=== PATIENT | female | born 1975 ===

== ENCOUNTER 2017-09-12 12:37 | Inpatient (IN) | payer MEDICAID, SELFPAY ==
[2017-09-12] MEDS ORDERED: ISOVUE-370 76%-LOCM 1 ML ONE (12:59)
[2017-09-12 13:10] LABS: O2 Tension (PaO2) 118.7 mmHg (80.0-100.0); pH, Arterial 7.41 (7.35-7.45)
[2017-09-12 13:11] LABS: Analyzer IN Cardio ER; Calcium, Ionized 1.2 mmol/L (1.12-1.30); Carboxyhemoglobin (COHb) 1.7 gm% (0.0-3.0); Hematocrit-ABG 29.3 % (36.0-47.0); Hemoglobin (Hb) 8.8 g/dL (12.0-16.0)
--- NOTE | 2017-09-12 13:28 | RAD ---
CHEST 1 VIEW: HISTORY: Unresponsive. Intubated. FINDINGS: Cardiac silhouette is magnified by projection. Pulmonary vasculature is engorged. Dense airspace op acity is present at the left upper lobe and the right perihilar level. Mediastinum is midline. Subtle gas surrounds the cardiac margin and the descending aorta. Gas density is present within each side of the neck soft tissues. The tip of an endotracheal catheter overlies the thoracic inlet. Nasogastric tube descends to the [facility]. Metallic clips overlie the gallbladder fossa. IMPRESSION: 1. Endotracheal catheter is in good radiographic position. Soft tissue gas of the neck and pneumome diastinum are likely related to [place] trauma. 2. Dense bilateral airspace disease likely related to developing edema. 3. No evidence of pneumothorax. POS: [facility]
[2017-09-12] MEDS ORDERED: Propofol 1,000 MG/100 ML VIAL IV ONE (13:35)
[2017-09-12 13:44] LABS: #Monocytes 1.7 thou/uL (0.11-0.59); #Neutrophils 16.3 thou/uL (1.40-6.50); %Basophils 0.1 % (0.0-1.0); %Eosinophils 0.1 % (0.0-10.0); %Monocytes 8.8 % (0.0-10.0); Hemoglobin 9.7 g/dL (12.0-16.0); Mean Corpuscular HGB CONC 30.2 g/dL (32.0-36.0); Mean Corpuscular Hemoglobin 25.5 pg (27.0-31.0); Mean Corpuscular Volume 84.5 fl (81.0-99.0); Mean Platelet Volume 9.5 fL (7.4-10.4); Platelet Count 199 thou/uL (130-400)
[2017-09-12 13:48] LABS: BHCG - Serum Negative (NEGATIVE); Pregs Control Background? CLEAR/WHITE (CLR/WHITE); Pregs Control Bar Appear? YES (CONTROL BAR)
[2017-09-12 13:51] LABS: INR-International Normal Ratio 1.4; PTT 42.4 SEC (22.9-36.1); Prothrombin Time 17.4 SEC (12.0-14.7)
[2017-09-12] MEDS ORDERED: Midazolam HCl 5 mg/ml Vial ONE (13:53)
[2017-09-12 13:57] LABS: ALT (SGPT) 17 U/L (8-55); AST (SGOT) 26 U/L (5-34); Albumin 3.2 g/dL (3.5-5.0); Alkaline Phosphatase 210 U/L (40-150); Anion Gap 19 mmol/L (10-20); BUN (Urea Nitrogen) 23 mg/dL (7.0-18.7); Bilirubin, Total 0.5 mg/dL (0.2-1.2); CK (CPK) 269 U/L (29-168); Calc. Creatinine Clearance 0 mL/min (70-130); Calcium 9.2 mg/dL (7.8-10.44); Carbon Dioxide 21 mmol/L (22-29); Chloride 107 mmol/L (98-107); Estimated GFR-MDRD 62; Globulin 4.3 g/dL (2.4-3.5); Glucose 124 mg/dL (70-105); Lipase 4 U/L (8-78); Magnesium 2.1 mg/dL (1.6-2.6); Potassium 3.3 mmol/L (3.5-5.1); Protein, Total 7.5 g/dL (6.0-8.3); Sodium 144 mmol/L (136-145)
[2017-09-12 14:00] LABS: CKMB 5.9 ng/mL (0-6.6)
[2017-09-12 14:02] LABS: Troponin I 0.421 ng/mL (< 0.028)
[2017-09-12] MEDS ORDERED: Pantoprazole 40 MG VIAL ONE (14:02)
[2017-09-12] MEDS ORDERED: Fentanyl CADD 250 ML ONE (14:11)
[2017-09-12 14:14] LABS: D-Dimer Test Greater than 20.00 *mcg/mL (0.27-0.43)
[2017-09-12 14:15] LABS: Thyroid Stimulating Hormone 0.6406 uIU/mL (0.35-4.94)
[2017-09-12 14:16] LABS: Bilirubin Negative (Negative); Blood, Urine Large (Negative); Clarity CLOUDY (Clear); Glucose, Urine (Dipstick) Negative (Negative); Leukocyte Negative (Negative); Nitrite Negative (Negative); Protein, Urine (Dipstick) 300 mg/dL (Neg-Trace); Specific Gravity, Urine 1.033 (1.002-1.036)
[2017-09-12 14:19] LABS: RBC/HPF 0-3 HPF (0-3)
[2017-09-12 14:20] LABS: Pathc Cast-AUWi Flag 3.89 (0-2.49)
[2017-09-12] MEDS ORDERED: Sodium Chloride For Inhalation 0.9% 3 ML NEB ONE (14:22)
[2017-09-12 14:28] LABS: Amphetamine Detected (NotDetected); Barbiturates Screen Not Detected (NotDetected); Benzodiazepine Screen Detected (NotDetected); Cocaine Metabolite Screen Not Detected (NotDetected); Medtox Control Line Valid? VALID (VALID); Medtox Reader # READER 1; Methadone Not Detected (NotDetected); Methamphetamine Detected (NotDetected); Opiate Screen Not Detected (NotDetected); Oxycodone Screen Not Detected (NotDetected); Phencyclidine (PCP) Not Detected (NotDetected); THC/Cannabinoid Screen Not Detected (NotDetected); Tricyclic Screen Not Detected (NotDetected)
[2017-09-12 14:29] LABS: Bacteria/HPF 2+ HPF (None Seen)
[2017-09-12 14:30] LABS: Hyaline Casts/LPF 0-3 HYALINE CAST LPF (0-3 Hyaline); Manual Microscopic Reviewed? No Path Casts Seen; Other Casts/LPF 0-3 FINELY GRAN LPF (0-3 Hyaline); Renal Epithelial None Seen HPF (0-3); Transitional Epithelial NONE SEEN HPF (0-3)
--- NOTE | 2017-09-12 15:17 | CT ---
CT HEAD NONCONTRAST: HISTORY: Syncope. FINDINGS: There is low density throughout the left cerebral hemisphere with effacement of the sulci and loss of rodriguez-white differentiation. Hyperdensity is associated with branches of the left middle cerebral ar yamila and in the arteries at the expected location of the anterior cerebral arteries. Less severe effacement of the right cerebral sulci and cerebellum is apparent. Minimal rightward fransisca ft of the septum pellucidum is present. There is effacement of the left lateral ventricle. Soft tissue gas seen on chest CT extends into the neck and posterior pharyngeal soft tissues. There is fluid and mucosal thickening within the maxillary sinuses and ethmoid air cells. IMPRESSION: Severe acute cytotoxic edema associated with the left cerebral hemisphere, likely related to recent s evere vascular insult. No hemorrhage is evident. Hyperdensity associated with the left middle cereb ral and anterior cerebral arteries likely reflux complete clot. Findings were called to Dr. Garcias in the emergency department at 1454 hours. CODE CR POS: [facility]
--- NOTE | 2017-09-12 15:18 | CT ---
CT CERVICAL SPINE NONCONTRAST: History Fall. Neck injury. FINDINGS: Disk space narrowing is most pronounced at the C5-6 and C6-7 levels. There is osteophytosis througho ut the vertebral bodies and facets. No acute fracture or dislocation. Cervicothoracic junction is i ntact. Endotracheal catheter and nasogastric tube are partially visualized. Extensive subcutaneous gas and mediastinal gas are again demonstrated. IMPRESSION: No acute osseous abnormalities of the cervical spine are demonstrated. POS: [facility]
--- NOTE | 2017-09-12 15:23 | CT ---
CT ARTERIOGRAM CHEST WITH IV CONTRAST AND 3D MIP IMAGING: HISTORY: Syncope. Chest pain. FINDINGS: There is good contrast opacification of the pulmonary arteries and thoracic aorta with normal branchi ng of the great vessels. Dense airspace disease is present within each lobe, most severe at the post erior segment left upper lobe. A small amount of gas is present throughout the mediastinum, extendin g from the retrocrural area of the upper abdomen into the neck. The endotracheal catheter and nasoga stric tube are in good CT position. IMPRESSION: 1. No CT evidence of pulmonary embolus. 2. Pneumomediastinum. Dense bilateral patchy airspace disease. POS: [facility]
--- NOTE | 2017-09-12 15:25 | CT ---
CT ABDOMEN AND PELVIS WITH IV CONTRAST: HISTORY: Fall. Abdomen injury. FINDINGS: Airspace disease at the lung bases is again demonstrated s described on recent CT chest. Gallbladder is surgically absent. Nasogastric tube decompresses the stomach. The liver, spleen, kidneys, adren al glands, and pancreas have a normal CT appearance. No free fluid is apparent. Urinary bladder is decompressed by a Boothe catheter. Lack of oral contrast limits evaluation of the bowel. No evidence of obstruction. IMPRESSION: No acute abnormalities of the abdomen are demonstrated. POS: [facility]
[2017-09-12] MEDS ORDERED: hydrALAZINE 20 MG/ML VIAL SLOW IVP PRN (17:21)
[2017-09-12] MEDS ORDERED: Octreotide Acetate 1,250 MCG in Sodium Chloride 0.9% 250 ML 250 ML IVPB SCH (17:21)
[2017-09-12] MEDS ORDERED: Ondansetron PF 4 MG/2 ML Vial IVP PRN (17:21)
--- NOTE | 2017-09-12 18:45 | CON ---
DATE OF CONSULTATION: 09/12/2017 Ms. العراقي is a 41-year-old female found down at home, I am told she was under her bed. She was found by her family. She apparently had feces on her face. She was intubated in transfer. She is currently unresponsive. CT shows a large hemispheric thrombotic cerebrovascular accident. Given that this is already radiogr aphically visible, there is probably been some time period between the event and now. PAST MEDICAL HISTORY: Otherwise unknown. SOCIAL HISTORY: She is reportedly a smoker. She has a history of street drug use. ALLERGIES: She has no reported drug allergies. MEDICATIONS: She is on no prescription drugs reportedly. PHYSICAL EXAMINATION: VITAL SIGNS: She was hypertensive in the ER with a blood pressure 180/120. Blood pressure is 95/56, heart rate 95 in triage. HEENT: Sclerae is anicteric. She is orally intubated. NECK: Without lymphadenopathy. LUNGS: Remarkable for equal breath sounds. HEART: Regular rhythm. ABDOMEN: Soft. EXTREMITIES: Without asymmetry. Chest radiograph suggestive of bilateral infiltrates. CT pulmonary angiogram was done which shows a pneumomediastinum. Abdomen and pelvis CT was done showing no abnormalities. Cervical spine CT shows no fracture. IMPRESSION: Thrombotic cerebrovascular respiratory failure with respiratory failure. Neurology has been consulted. There is a midline shift but small apparently according to the radiologist's interpretation of her CT of her head. Neurology or Neurosurgery should be consulted given her young age. Her prognosis for recovery is dismal. I reviewed her lab work. Drug screen was positive for benzodiazepines, methamphetamines and amphetamines, but I suppose this c ould be a thrombotic cerebrovascular accident associated with her drug use. Renal function is normal . Potassium is 3.3 and pH 7.41, CO2 of 44, pO2 of 118. She is mildly auto-anticoagulated. White count is 19, hemoglobin 9.7, platelets 199. The cause of her anemia is unclear. MCV is 84. I will be happy to follow with the other physicians caring for her. CRITICAL CARE TIME: 30 minutes.
[2017-09-12] MEDS ORDERED: Lorazepam 2 MG/ML VIAL SLOW IVP PRN (19:01)
[2017-09-12] MEDS ORDERED: Fentanyl BOLUS 250 ML IVPB PRN (19:01)
[2017-09-12] MEDS ORDERED: Morphine 2 MG/ML SYRINGE SLOW IVP PRN (19:01)
[2017-09-12] MEDS ORDERED: DISCONTINUE PREVIOUS NARCOTIC PAIN MEDICATIONS AND BENZODIAZEPINES FS SCH (19:01)
[2017-09-12] MEDS ORDERED: fentaNYL Citrate/PF 2,000 MCG in Sodium Chloride 0.9% 60 ML IV SCH (19:01)
[2017-09-12] MEDS: Piperacillin/Tazobactam 3.375 GM in Sodium Chloride 0.9% 100 ML IVPB SCH (19:26)
[2017-09-12] MEDS: Pantoprazole 80 MG in Sodium Chloride 0.9% 100 ML IVP SCH (19:27)
[2017-09-12] MEDS: Sodium Chloride 0.9% 1,000 ML IV SCH (19:27)
[2017-09-12] MEDS: Propofol 1,000 MG/100 ML VIAL IV PRN (19:47)
[2017-09-12] MEDS: Vancomycin HCl 1 GM in Premix Bag 1 BAG IVPB SCH (19:47)
[2017-09-12] MEDS: IN MANNITOL IV SCH (20:14)
[2017-09-12] MEDS: ADMIXTURE FEE IV SCH (20:14)
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
[2017-09-12] MEDS ORDERED: ADMIXTURE FEE IV SCH (21:00)
[2017-09-12] MEDS ORDERED: IN MANNITOL IV SCH (21:00)
[2017-09-12 21:21] LABS: Hemoglobin 7.5 g/dL (12.0-16.0); Platelet Count 134 thou/uL (130-400)
--- NOTE | 2017-09-12 23:58 | HP ---
PRIMARY CARE PHYSICIAN: At the [facility]. CHIEF COMPLAINT: Found down. HISTORY OF PRESENT ILLNESS: The history of present illness is taken from discussion with the ER phys marshallan as well as the patient's mother who has arrived at the ICU. The patient is currently intubated and unable to give any history. Ms. Michel has no known past medical history except for depression . Her mother says that about 2 weeks ago, she had some flu-like symptoms and apparently was diagnose d with the flu, but they were not able to get Tamiflu and tried taking some medications over the coun ter. She seemed to get somewhat better and was able to return back to work, but then a couple of day s ago, she started getting sick again. The patient's son had told the patient's mother that she seem ed a hoarse on yesterday and could not talk very well, then they went to check on her today, she woul d not answer the door, so they had somebody opened the door and they found her under the bed. She polk d blood coming out of her mouth and nose, and she was holding her left hand up very rigid. Her eyes were rolled back in her head. EMS was called and she was brought to the emergency room for evaluatio n. In the ER, a CT scan of the chest was negative for pulmonary embolism; however, it did show some dense pulmonary infiltrates and some pneumomediastinum. She also had a CT scan of the brain which sh owed a severe cytotoxic edema of the almost the entire left cerebral hemisphere and it what appears t o be a complete occlusion of the left middle cerebral and anterior cerebral artery. She was intubate d in the field for protection of her airway. Other than that, her mother says that she recently had broken up with her boyfriend other than that she says she takes a lot of pzrn-gwd-slzcxrk medications for headache. She is not really sure what they are and she also takes a lot of "sleeping pills" to help her sleep and these are also over the counter medications. REVIEW OF SYSTEMS: Unobtainable. PAST MEDICAL HISTORY: Significant for depression. PAST SURGICAL HISTORY: She has had bowel surgery for what sounds like some type of bowel obstruction . ALLERGIES: No known drug allergies. SOCIAL HISTORY: She smokes about a pack a day for 20 years. No known history of any alcohol use; ho wever, she has used drugs in the past, but was currently not known to be taking any drugs. MEDICATIONS: She says she takes some type of antidepressant. PHYSICAL EXAMINATION: GENERAL: The patient is intubated. She is sedated. VITAL SIGNS: Her blood pressure in the ER initially was 185/128, heart rate was 112, respiratory rat e of 16, and she is afebrile. HEENT: Her pupils are reactive and equal. Throat is unable to assess. The ET tube is in place and she has got bloody discharge around the ET tube. LUNGS: Significant for expiratory wheezing as well as rales. Decreased breath sounds on the left. CARDIOVASCULAR: She has normal heart tones. She does have a grade 2/6 systolic murmur. ABDOMEN: More or less quiet with very faint bowel sounds. Abdomen is soft. EXTREMITIES: There is no edema. She does have some scattered bruising on the forehead on her right shoulder and right hip. NEUROLOGIC: She is spontaneously moving her left side. She is grimacing her face; however, her righ t side seems to not be moving. LABORATORY DATA: Her white blood cell count 19, hemoglobin 9.7, hematocrit 32.1, platelet count of 1 99. Her sodium is 144, potassium 3.3, chloride is 107, CO2 is 21, BUN of 23, creatinine 0.98, glucos e is 124. Her alkaline phosphatase is 210. Lactic acid was 2.9. Urine test was negative. INR was slightly elevated at 1.4. ASSESSMENT AND PLAN: This is a 41-year-old female that was found down at home, intubated in the [facility]. It appears that as if she has experienced or suffered a massive stroke in the left MCA and left A CA distribution. Her urine drug screen was positive for amphetamine and methamphetamine, and she was hypertensive on arrival. It is possible that she could have suffered a stroke as a result of possib le substance abuse. She also appears to have significant infiltrates in the left lung and pneumomedi astinum and possible she may have aspirated. It is unclear when in fact this cerebral event occurred . The patient also is demonstrating either hematemesis or possibly hemoptysis. At this time, it is difficult to determine. She is being admitted to the ICU. 1. With regard to the acute stroke, Neurosurgery had been contacted from the emergency room to see i f decompressive surgery would be indicated, and at this time, it is not. She is to be treated conser vatively. Unfortunately with a bleeding, we will wait giving her any aspirin, unless cleared by Neur ology. Neurology will be consulted. 2. Pulmonary infiltrates. It is unclear whether or not this is an infectious process. We will assu me this is possibly an aspiration pneumonia and treat her with Zosyn. We will possibly add vancomyci n as well and consult Pulmonary and cardiovascular disease specialist. 3. Hemoptysis versus possible GI bleed. Once this is sorted out, the appropriate consultants will b e contacted. In the meantime, she will be placed on octreotide and Protonix drip. Once again, DVT p rophylaxis will be withheld given the evidence of active bleeding. Her H&H will be monitored and tra nsfused as needed.
[2017-09-13] MEDS: Piperacillin/Tazobactam 3.375 GM in Sodium Chloride 0.9% 100 ML IVPB SCH ×4 (00:09→17:22)
[2017-09-13] MEDS: Sodium Chloride 0.9% 1,000 ML IV SCH ×2 (00:41→09:12)
[2017-09-13 01:42] LABS: Hemoglobin 7.3 g/dL (12.0-16.0); Platelet Count 122 thou/uL (130-400)
[2017-09-13] MEDS: Pantoprazole 80 MG in Sodium Chloride 0.9% 100 ML IVP SCH (05:22)
[2017-09-13] MEDS: Propofol 1,000 MG/100 ML VIAL IV PRN ×3 (05:23→19:28)
[2017-09-13 05:36] LABS: #Eosinphils 0.1 thou/uL (0.0-0.7); #Lymphocytes 1.5 thou/uL (1.20-3.40); #Monocytes 1.3 thou/uL (0.11-0.59); #Neutrophils 13.2 thou/uL (1.40-6.50); %Eosinophils 0.4 % (0.0-10.0); %Lymphocytes 9.4 % (21.0-51.0); %Neutrophils 82.3 % (42.0-75.0); Hemoglobin 7.2 g/dL (12.0-16.0); Mean Corpuscular HGB CONC 31.3 g/dL (32.0-36.0); Mean Platelet Volume 10.8 fL (7.4-10.4); Platelet Count 110 thou/uL (130-400); RBC Distribution Width 16.5 % (11.5-14.5); Red Blood Cell (RBC) Count 2.75 mill/uL (4.20-5.40)
[2017-09-13 06:04] LABS: Anion Gap 12 mmol/L (10-20); BUN (Urea Nitrogen) 21 mg/dL (7.0-18.7); Calc. Creatinine Clearance 48 mL/min (70-130); Calcium 8.5 mg/dL (7.8-10.44); Carbon Dioxide 23 mmol/L (22-29); Cardiac Risk 6.6 (Less than 4.5); Chloride 116 mmol/L (98-107); Cholesterol 99 mg/dl (< 200 Desired); Estimated GFR-MDRD 43; Glucose 171 mg/dL (70-105); HDL Cholesterol 15 mg/dL (>60 Neg Risk); LDL Cholesterol, Calculated 41 mg/dL; Potassium 3.4 mmol/L (3.5-5.1); Sodium 148 mmol/L (136-145); Triglycerides 213 mg/dL (Less than 150)
[2017-09-13 07:06] LABS: Actual Bicarbonate (HCO3a) 22.7 mEq/L (22-26); Analyzer IN Cardio OR; Base Excess (BEa) -2.2 mEq/L (0 (+/-) 2.5); Carboxyhemoglobin (COHb) 1.8 gm% (0.0-3.0); Hematocrit-ABG 20.6 % (36.0-47.0); Hemoglobin (Hb) 7.4 g/dL (12.0-16.0); O2 Tension (PaO2) 90.5 mmHg (80.0-100.0); Puncture Site LRA; pH, Arterial 7.38 (7.35-7.45)
[2017-09-13] MEDS: IN MANNITOL IV SCH ×3 (09:12→21:14)
[2017-09-13] MEDS: Vancomycin HCl 1 GM in Premix Bag 1 BAG IVPB SCH (09:12)
[2017-09-13] MEDS: ADMIXTURE FEE IV SCH ×3 (09:12→21:14)
--- NOTE | 2017-09-13 09:14 | PDOC.PN ---
- Subjective Encounter Start Date: 09/13/17 Encounter Start Time: 09:12 Ms. Michel was seen in follow-up of massive CVA. Patient is intubated and sedated. She has not had significant change overnight. - Objective Resuscitation Status: Resuscitation Status FULL:Full Resuscitation MAR Reviewed: Yes Vital Signs & Weight: Vital Signs (12 hours) Temp Pulse Resp BP Pulse Ox 09/13/17 08:00 16 09/13/17 07:43 99.1 F 63 16 98 09/13/17 07:00 99.1 F 09/13/17 06:15 76 161/72 H 09/13/17 06:00 24 H 09/13/17 04:00 16 09/13/17 03:00 98.3 F 09/13/17 02:40 69 09/13/17 02:00 22 H 09/13/17 00:00 98.5 F 18 09/12/17 22:13 89 09/12/17 22:00 16 Weight Weight 119 lb 7.849 oz Most Recent Monitor Data Heart Rate from ECG 64 NIBP 135/78 NIBP BP-Mean 94 Respiration from ECG 16 SpO2 99 I&O: 09/12/17 09/13/17 09/14/17 06:59 06:59 06:59 Intake Total 2176 Output Total 1910 75 Balance 266 -75 Result Diagrams: 09/13/17 05:00 09/13/17 04:59 Phys Exam - Physical Examination HEENT: PERRLA Respiratory: no wheezing + rhonchi bilaterally Cardiovascular: RRR, no significant murmur, no rub Gastrointestinal: soft, non-tender, positive bowel sounds Musculoskeletal: edema present + upper extremity edema, in her hands + right sided paresis Dx/Plan (1) Acute ischemic left MCA stroke Code(s): I63.512 - CEREB INFRC D/T UNSP OCCLS OR STENOS OF LEFT MID CEREB ART Status: Acute (2) Acute left MIRTA ischemic stroke Code(s): I63.522 - CEREB INFRC D/T UNSP OCCLS OR STENOS OF LEFT ANT CEREB ART Status: Acute (3) Aspiration pneumonia Code(s): J69.0 - PNEUMONITIS DUE TO INHALATION OF FOOD AND VOMIT Status: Acute (4) Acute blood loss anemia Code(s): D62 - ACUTE POSTHEMORRHAGIC ANEMIA Status: Acute (5) Methamphetamine abuse Code(s): F15.10 - OTHER STIMULANT ABUSE, UNCOMPLICATED Status: Acute - Plan * She remains intubated and sedated * Acute Left MCA, and MIRTA CVA- she has been evaluated by Neurology, and placed on Mannitol yesterday. * A repeat CT scan is ordered for today * Echo is pending * Aspiration Pneumonia- continue Zosyn and Vancomycin- can likely discontinue Vancomycin in a day or so * Acute blood loss anemia- ? epistaxis from the trauma of an assumed fall. There was no blood in the stomach with NG tube suction. Will discontinue Octreotide drip, and Change Protonix to BID dosing * Further recommendations per Neurology, and Critical Care. * Prognosis is guarded
--- NOTE | 2017-09-13 11:26 | PRG ---
DATE OF SERVICE: 09/13/2017 SUBJECTIVE: Ms. العراقي remains hemiplegic. OBJECTIVE: VITAL SIGNS: Heart rate is 100, blood pressure 141/47, respiratory rate is 16 and temperature is 100 .2. LUNGS: Remarkable for coarse equal breath sounds. HEART: Regular rhythm. ABDOMEN: Soft. EXTREMITIES: Without asymmetry. LABORATORY DATA: PH 7.38, CO2 of 39 and pO2 of 90. Sodium 148, potassium 3.4, chloride 116, bicarb 23, BUN 21 and creatinine 1.34. White count 16, hemoglobin 7.2 and platelets 110,000. IMPRESSION AND PLAN: 1. Respiratory failure after a thrombotic cerebrovascular accident with hemiplegia of her dominant s michael and aphasia. 2. Street drug use with history of methamphetamine use. 3. Anemia with decreased mean corpuscular volume. She probably would benefit from a transfusion tod ay of just 1 unit of packed cells. 4. Mild hyperchloremia. We will switch her to half normal saline. I met with family and answered all their questions. She is not weanable at this point in time. Another CT is planned for today. CRITICAL CARE TIME: 30 minutes.
[2017-09-13] MEDS: Sodium Chloride 0.45% 1,000 ML IV SCH (12:21)
--- NOTE | 2017-09-13 13:11 | PRG ---
DATE OF SERVICE: 09/13/2017 CHIEF COMPLAINT: CVA. INTERVAL HISTORY: The patient has been in the CCU since yesterday and she is still currently intubat ed and since her admission, she has been moving her left side according to her family as well as nurs ing staff when off sedation. She has pending CT angiogram of the head and neck at this time. LABORATORY RESULTS: White count 16, hemoglobin 7.2, hematocrit 22.9, platelets 110. Chemistry: Sod ium 148, potassium 3.4, chloride 116, bicarbonate 23, BUN 21, creatinine 1.34, glucose 171. Serum os molality 314, triglycerides 213, cholesterol 99, LDL 41, HDL 15 and lipase 4. MR and CT angio is pen ding. PHYSICAL EXAMINATION: VITAL SIGNS: Blood pressure 141/47, pulse 100, and temperature 100.2. GENERAL APPEARANCE: She is on ventilator and she is resting, been on propofol and off propofol. She is moving her left upper extremity. Cranial nerves: Pupils are sluggishly reactive to light and mo tor examination: Tone is normal, bulk is normal and no response to any stimulus on the right side. On the left side, she spontaneously moves her left upper and lower extremity and then the left upper extremities held up, she tends to fold it up when asked to do so and she does move her toes to comman d. Deep tendon reflexes absent. IMPRESSION: Patient is a 41-year-old lady who is critically ill and she has had a left middle cerebr al artery, anterior cerebral artery cerebrovascular accident and this is most likely in multiple vasc ular distribution, likely of left internal carotid artery occlusion. At this time, we are waiting on her CT angio, which is going to be completed today. There is some interval responsiveness; however, prognosis is still guarded at this time. RECOMMENDATIONS: 1. The patient's family was at the bedside. I have informed them that the prognosis is somewhat gua rded at this time and we will wait for CT angio findings. 2. Continue supportive care and mannitol for now. 3. I will request one of my Neurology colleagues to follow with the patient.
--- NOTE | 2017-09-13 17:40 | CT ---
CT ARTERIOGRAM NECK WITH IV CONTRAST AND 3D MIP IMAGING CT HEAD NONCONTRAST CT ARTERIOGRAM HEAD WITH IV CONTRAST AND 3D MIP IMAGING: History: CVA. Comparison: Noncontrast CT head from 09-12-17. FINDINGS: Continued expansion of the left cerebral hemisphere with loss of rodriguez-white differentiation and compl ete effacement of the sulci has progressed since the prior study, now with developing liquefaction of the left cerebral hemisphere. There is 1.0 cm rightward shift of the septum pellucidum due to the la rge cytotoxic edema associated with the left cerebral hemisphere. No hemorrhage is evident. Cerebella r tonsils now extend into the foramen magnum. Endotracheal and nasogastric tube are partially visualized. Dense parenchymal opacity at each lung ap ex likely reflects pulmonary edema. Gas within the subcutaneous tissues of the neck has decreased sin ce the previous exam. There is normal branching of the great vessel from the aortic arch. Good contrast flow is demonstrate d into and throughout the vertebral system and into each carotid system. The right internal carotid a rtery is patent. Flow is demonstrated into the right anterior, middle, and posterior cerebral arterie s. Contrast flow to the left carotid bifurcation is patent. Smoothly marginated defect along the lateral wall of the proximal internal carotid artery result in near complete occlusion. Flow is demonstrated into the more distal internal carotid artery, although it is decreased at the distal cervical ICA an d into the intracranial ICA. No significant contrast is apparent at the level of the carotid siphon. IMPRESSION: 1. Further progression of the large left cerebral infarct with developing liquefaction and diffuse ce rebral edema. 2. 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 3. Neurogenic pulmonary edema. POS: [facility]
[2017-09-13 19:47] LABS: Vancomycin, Trough 23.4 ug/mL
[2017-09-13] MEDS: Pantoprazole 40 MG VIAL IVP SCH (21:14)
[2017-09-14] MEDS: Piperacillin/Tazobactam 3.375 GM in Sodium Chloride 0.9% 100 ML IVPB SCH ×4 (00:19→17:49)
[2017-09-14] MEDS: Sodium Chloride 0.45% 1,000 ML IV SCH (00:20)
[2017-09-14] MEDS: Propofol 1,000 MG/100 ML VIAL IV PRN ×3 (04:06→18:34)
[2017-09-14 06:42] LABS: Anion Gap 13 mmol/L (10-20); BUN (Urea Nitrogen) 13 mg/dL (7.0-18.7); Calc. Creatinine Clearance 44 mL/min (70-130); Calcium 8.6 mg/dL (7.8-10.44); Carbon Dioxide 24 mmol/L (22-29); Chloride 125 mmol/L (98-107); Estimated GFR-MDRD 41; Glucose 110 mg/dL (70-105); Potassium 3.1 mmol/L (3.5-5.1); Sodium 159 mmol/L (136-145)
[2017-09-14 06:59] LABS: pH, Arterial 7.57 (7.35-7.45)
[2017-09-14 07:00] LABS: Actual Bicarbonate (HCO3a) 21.8 mEq/L (22-26); Base Excess (BEa) 0.2 mEq/L (0 (+/-) 2.5); CO2 Tension 24.3 mmHg (35.0-45.0); Carboxyhemoglobin (COHb) 1.5 gm% (0.0-3.0); Hematocrit-ABG 19.8 % (36.0-47.0); Hemoglobin (Hb) 8.1 g/dL (12.0-16.0)
[2017-09-14 07:00] LABS: #Eosinphils 0.3 thou/uL (0.0-0.7); #Lymphocytes 2.3 thou/uL (1.20-3.40); #Monocytes 1.3 thou/uL (0.11-0.59); #Neutrophils 15.3 thou/uL (1.40-6.50); %Eosinophils 1.5 % (0.0-10.0); %Monocytes 6.8 % (0.0-10.0); %Neutrophils 79.7 % (42.0-75.0); Anisocytosis SLIGHT = 6-15 cells (100X) (0-5/hpf); Hemoglobin 8.4 g/dL (12.0-16.0); MDiff Complete? YES; Mean Corpuscular HGB CONC 31.4 g/dL (32.0-36.0); Mean Corpuscular Volume 82.7 fl (81.0-99.0); Mean Platelet Volume 8.5 fL (7.4-10.4); PLT Morphology Comment Appears Decreased; Platelet Count 114 thou/uL (130-400); RBC Distribution Width 16.3 % (11.5-14.5); Red Blood Cell (RBC) Count 3.24 mill/uL (4.20-5.40); Schistocytes SLIGHT = 2-5 cells (100X) (0-1/hpf); White Blood Cell (WBC) Count 19.2 thou/uL (4.8-10.8)
[2017-09-14 07:01] LABS: ALV-art Gradient 106.825 (0-20); Calcium, Ionized 1.3 mmol/L (1.12-1.30); Potassium - ABG Lab 3.1 mmol/L (3.70-5.30); Puncture Site LRA
--- NOTE | 2017-09-14 07:30 | PDOC.PN ---
- Subjective Encounter Start Date: 09/14/17 Encounter Start Time: 07:28 Ms. Michel was seen today in follow-up. She is intubated and sedated. No significant change overnight. - Objective Resuscitation Status: Resuscitation Status FULL:Full Resuscitation MAR Reviewed: Yes Vital Signs & Weight: Vital Signs (12 hours) Temp Pulse Resp BP Pulse Ox 09/14/17 07:00 100.3 F H 09/14/17 06:05 67 146/75 H 09/14/17 06:00 16 09/14/17 04:00 16 09/14/17 02:43 59 L 09/14/17 02:00 16 09/14/17 00:38 67 09/14/17 00:00 16 09/13/17 22:00 16 09/13/17 20:45 65 09/13/17 20:00 100.7 F H 68 16 99 Weight Weight 119 lb 7.849 oz Most Recent Monitor Data Heart Rate from ECG 59 NIBP 145/72 NIBP BP-Mean 97 Respiration from ECG 16 SpO2 97 I&O: 09/13/17 09/14/17 09/15/17 06:59 06:59 06:59 Intake Total 2176 3361 Output Total 1910 4105 55 Balance 266 -744 -55 Result Diagrams: 09/14/17 04:14 09/14/17 04:14 Phys Exam - Physical Examination HEENT: PERRLA Respiratory: no wheezing, no rales, no rhonchi, clear to auscultation bilateral Cardiovascular: RRR, no significant murmur Gastrointestinal: soft, positive bowel sounds Musculoskeletal: no edema Dx/Plan (1) Acute ischemic left MCA stroke Code(s): I63.512 - CEREB INFRC D/T UNSP OCCLS OR STENOS OF LEFT MID CEREB ART Status: Acute (2) Acute left MIRTA ischemic stroke Code(s): I63.522 - CEREB INFRC D/T UNSP OCCLS OR STENOS OF LEFT ANT CEREB ART Status: Acute (3) Aspiration pneumonia Code(s): J69.0 - PNEUMONITIS DUE TO INHALATION OF FOOD AND VOMIT Status: Acute (4) Acute blood loss anemia Code(s): D62 - ACUTE POSTHEMORRHAGIC ANEMIA Status: Acute (5) Methamphetamine abuse Code(s): F15.10 - OTHER STIMULANT ABUSE, UNCOMPLICATED Status: Acute - Plan * Acute Left MIRTA and MCA CVA- with right sided weakness- continue Vent support * HTN- blood pressure is stable * Echo results noted- normal EF, and no thrombus * CTA of the neck noted, with a focal dissection of the Left Carotid, . * Hypernatremia- consider adding a hypotonic IV solution if OK with Neurology * ? Nutritional support- ? PEG tube * HTN- blood pressure is stable
[2017-09-14 08:23] LABS: Osmolality, Serum 336 mOsm/kg (280-295)
[2017-09-14] MEDS: ADMIXTURE FEE IV SCH ×3 (08:25→20:27)
[2017-09-14] MEDS: IN MANNITOL IV SCH ×3 (08:25→20:27)
[2017-09-14] MEDS: Pantoprazole 40 MG VIAL IVP SCH ×2 (08:41→20:26)
--- NOTE | 2017-09-14 09:49 | RAD ---
CHEST 1 VIEW: HISTORY: A 41-year-old female with a history of respiratory insufficiency. COMPARISON: 09/12/17. FINDINGS: NG tube and endotracheal tubes are in place. There are patchy bilateral interstitial and alveolar op acity changes showing some worsening in the right lower lung zone but improvement in the left upper l obe. No evidence for pneumothorax. IMPRESSION: Persistent somewhat changing bilateral interstitial and alveolar opacities somewhat more marked in th e right base but showing improvement in the left upper lobe region. Continue short-term followup. POS: OFF
--- NOTE | 2017-09-14 11:57 | PRG ---
DATE OF SERVICE: 09/14/2018 Ms. Michel remains mechanically ventilated. PHYSICAL EXAMINATION: VITAL SIGNS: Heart rate 66. Blood pressure 118/63, respiratory rate 28. LUNGS: Lungs are clear. HEART: Regular rhythm. ABDOMEN: Soft. Chest radiograph shows patchy bilateral infiltrates, but there is slight improvement. I reviewed this film. LABORATORY: White count 19.2, hemoglobin 8.4, platelets 114,000. Sodium 159, potassium 3.1, chloride 125, bicarbonate 24, BUN 13, creatinine 1.41. Intake and output is negative 744. IMPRESSION: 1. Respiratory failure after a thrombotic cerebrovascular accident that is massive. 2. Bilateral infiltrates? aspiration mediated versus neurogenic pulmonary edema. I met with the family today and explained that she will never be the same and likely will be bedridden in a senior living under the best of circumstances. She is slightly hyperosmolar now. She needs some gentle hydration with free water. She does not have a diuresis suggestive of diabetes insipidus, but she certainly is at risk for dying from this cerebrovascular accident. Critical care time 30 min. PRICILA
[2017-09-14] MEDS: Dextrose 5 %-0.45 % NaCl 1,000 ML IV SCH (11:59)
[2017-09-14] MEDS ORDERED: Vancomycin HCl 1 GM in Premix Bag 1 BAG IVPB SCH (12:45)
[2017-09-14] MEDS ORDERED: Aspirin 300 MG Suppository PR SCH (13:30)
[2017-09-14 14:20] LABS: Osmolality, Serum 331 mOsm/kg (280-295)
[2017-09-14 20:13] LABS: Osmolality, Serum 328 mOsm/kg (280-295)
[2017-09-15] MEDS: Dextrose 5 %-0.45 % NaCl 1,000 ML IV SCH ×2 (00:39→16:35)
[2017-09-15] MEDS: Piperacillin/Tazobactam 3.375 GM in Sodium Chloride 0.9% 100 ML IVPB SCH ×4 (00:39→18:16)
[2017-09-15] MEDS: Propofol 1,000 MG/100 ML VIAL IV PRN (04:07)
[2017-09-15 07:09] LABS: Actual Bicarbonate (HCO3a) 23.5 mEq/L (22-26); Base Excess (BEa) 0.4 mEq/L (0 (+/-) 2.5); CO2 Tension 31.3 mmHg (35.0-45.0); Calcium, Ionized 1.2 mmol/L (1.12-1.30); Carboxyhemoglobin (COHb) 1.8 gm% (0.0-3.0); Hematocrit-ABG 18.8 % (36.0-47.0); Hemoglobin (Hb) 7.5 g/dL (12.0-16.0); Potassium - ABG Lab 2.5 mmol/L (3.70-5.30); pH, Arterial 7.49 (7.35-7.45)
[2017-09-15 07:10] LABS: ALV-art Gradient 82.645 (0-20); Puncture Site RRA
--- NOTE | 2017-09-15 08:16 | RAD ---
SINGLE VIEW OF THE CHEST: Comparison: 09-14-17 History: Ventilated patient with respiratory failure. FINDINGS: Single view of the chest shows normal sized cardiomediastinal silhouette. The lines and tubes are unc hanged in position. There is subtle bilateral airspace opacities, unchanged. IMPRESSION: Stable exam. POS: [facility]
[2017-09-15] MEDS ORDERED: Aspirin 300 MG Suppository PR SCH (09:00)
[2017-09-15 09:30] LABS: Osmolality, Serum 331 mOsm/kg (280-295)
[2017-09-15] MEDS: ADMIXTURE FEE IV SCH (09:48)
[2017-09-15] MEDS: IN MANNITOL IV SCH (09:48)
--- NOTE | 2017-09-15 09:58 | PDOC.PN ---
- Subjective Encounter Start Date: 09/15/17 Encounter Start Time: 09:56 Ms. Michel has not improved overnight, instead she appears to be demonstrating some posturing. - Objective Resuscitation Status: Resuscitation Status FULL:Full Resuscitation MAR Reviewed: Yes Vital Signs & Weight: Vital Signs (12 hours) Pulse Resp 09/15/17 09:02 76 09/15/17 08:00 35 H 09/15/17 06:39 79 09/15/17 06:00 34 H 09/15/17 04:00 30 H 09/15/17 02:00 30 H 09/15/17 00:00 27 H 09/14/17 22:00 25 H Weight Admit Weight 121 lb 2.64 oz Weight 114 lb 3.191 oz Most Recent Monitor Data Heart Rate from ECG 70 NIBP 160/83 NIBP BP-Mean 106 Respiration from ECG 39 SpO2 98 I&O: 09/14/17 09/15/17 09/16/17 06:59 06:59 06:59 Intake Total 3361 2565 Output Total 4105 2490 105 Balance -744 75 -105 Result Diagrams: 09/14/17 04:14 09/14/17 04:14 Phys Exam - Physical Examination Left pupil is dialted, and sluggishly reactive + rhonchi Cardiovascular: RRR, no significant murmur Gastrointestinal: soft, non-tender, positive bowel sounds Musculoskeletal: no edema Dx/Plan (1) Acute ischemic left MCA stroke Code(s): I63.512 - CEREB INFRC D/T UNSP OCCLS OR STENOS OF LEFT MID CEREB ART Status: Acute (2) Acute left MIRTA ischemic stroke Code(s): I63.522 - CEREB INFRC D/T UNSP OCCLS OR STENOS OF LEFT ANT CEREB ART Status: Acute (3) Aspiration pneumonia Code(s): J69.0 - PNEUMONITIS DUE TO INHALATION OF FOOD AND VOMIT Status: Acute (4) Acute blood loss anemia Code(s): D62 - ACUTE POSTHEMORRHAGIC ANEMIA Status: Acute (5) Methamphetamine abuse Code(s): F15.10 - OTHER STIMULANT ABUSE, UNCOMPLICATED Status: Acute - Plan * Acute CVA- Massive Thrombotic Event- she continues to require Ventilator Support * HTN- blood pressure is elevated will slowly start to bring this down some, will add a low dose hydralazine per NG * Pulmonary Infiltrates- Continue Zosyn * Prognosis is guarded, await further input from Neurology as to how to proceed.
[2017-09-15] MEDS: Pantoprazole 40 MG VIAL IVP SCH ×2 (10:00→20:57)
[2017-09-15] MEDS ORDERED: Acetaminophen 650 MG/20.3 ML UDCUP PO PRN (10:04)
[2017-09-15] MEDS: Acetaminophen 650 MG/20.3 ML UDCUP PER TUBE PRN ×3 (10:08→22:08)
--- NOTE | 2017-09-15 11:59 | PRG ---
DATE OF SERVICE: 09/15/2017 Ms. Duggan has slightly asymmetric pupils. She has no gag. She has no corneals. She extends to sternal rub with both upper extremities. PHYSICAL EXAMINATION: LUNGS: Lungs are remarkable for coarse equal breath sounds. HEART: Regular rhythm. ABDOMEN: Abdomen is soft. LABORATORY: There is no new lab today. Chest radiograph today is reviewed, she still has patchy bilateral infiltrates. IMPRESSION: 1. Respiratory failure. 2. Aspiration pneumonia versus neurogenic pulmonary edema. 3. Massive thrombotic cerebrovascular accident. 4. Methamphetamine use. She is not expected to survive this in my opinion. We will continue with supportive care. Family will continue to be updated. She really should be a do not resuscitate patient. Blood cultures were reviewed. First two blood cultures, one is positive for bacillus and one is positive for MRSA. She is healthy when she came in. I suspect these are contaminants. Follow up blood cultures are negative. I doubt she was bacteremic on presentation. Critical care time 30 min. [facility]
[2017-09-15] MEDS ORDERED: hydrALAZINE 10 MG TAB PER TUBE SCH (15:00)
[2017-09-16] MEDS: Piperacillin/Tazobactam 3.375 GM in Sodium Chloride 0.9% 100 ML IVPB SCH ×5 (00:21→23:21)
--- NOTE | 2017-09-16 02:52 | PRG ---
DATE OF SERVICE: 09/14/2017 SUBJECTIVE: Ms. Meyer is a 41-year-old female, who presented after being found down. She was found to have a hypodensity of left MCA, MIRTA territory. She had been started on mannitol by Dr. Domingo. Nurse reports that there is a change in her neurological exam over the past 24 hours. She notes that patient has unequal pupil and has decerebrate posturing. PHYSICAL EXAMINATION: VITAL SIGNS: Blood pressure of 113/65, pulse of 75, temperature of 100.4, respirations of 26 on mechanical ventilation. GENERAL: Intubated, nonsedated female, in no apparent distress. RESPIRATORY: Clear to auscultation bilaterally. CARDIOVASCULAR: Regular rate and rhythm. NEUROLOGICAL: Mental status: The patient is unresponsive to verbal or noxious stimuli. Left pupil is 5 mm and nonreactive, right pupil is 3 mm and nonreactive. Corneal reflexes are present bilaterally. She does breathe over the ventilator machine. Motor exam showed no response to nail bed pressure on the right upper and right lower extremity. She has had decerebrate posturing to nail bed pressure on the left upper extremity. LABORATORY DATA: Labs are reviewed, which included CBC, BMP, and significant for WBC of 19.2, hemoglobin 8.4, hematocrit 26.8, platelet count 114. Sodium 159, potassium of 3.1, otherwise unremarkable. IMAGING STUDIES: A CT angiogram of the head and neck and CT head without contrast was reviewed. CT angiogram of the head and neck showed left ICA dissection, complete left ICA ischemic infarct with cerebral edema and midline shift of 10 mm from left to right. IMPRESSION: 1. Large left internal carotid artery distribution ischemic infarct. 2. Cerebral edema. 3. Herniation. Ms. Meyer is a 41-year-old female, who presented after being fall down. She had a large left ICA distribution ischemic infarct with cerebral edema and herniation. Her prognosis is very poor at this time. Continue supportive care. Continue current medical management. I will discuss with the family on tomorrow regarding her prognosis. PRICILA
--- NOTE | 2017-09-16 03:09 | PRG ---
DATE OF SERVICE: 09/15/2017 SUBJECTIVE: Ms. Meyer continues to deteriorate neurologically. According to the nurse, she has had decerebrate posturing on both sides. PHYSICAL EXAMINATION: VITAL SIGNS: Blood pressure of 180/87, pulse of 81, respirations of 32 on mechanical ventilation, temperature of 100.8 with a T-max of 101.7. GENERAL: Intubated, nonsedated female in comatose state. RESPIRATORY: Clear to auscultation bilaterally. CARDIOVASCULAR: Regular rate and rhythm. NEUROLOGICAL: Mental status, intubated and nonsedated female in a comatose state. Cranial nerves: Left pupil is 6 mm corneal reflexes are absent bilaterally. She does breathe over the ventilator machine. Motor exam showed decerebrate posturing to sternal rub and nail bed pressure in both upper and lower extremities. IMPRESSION: 1. Large left internal carotid artery ischemic infarct. 2. Left internal carotid artery dissection. 3. Cerebral edema or herniation. ASSESSMENT AND PLAN: Ms. Meyer is a 41-year-old female presented after being found down. She was found to have large left internal carotid artery distribution ischemic infarct with cerebral edema and herniation. I had discussed with the patient's mother over the phone and explained the findings of the CT scan of her head. I have explained that the prognosis is very grim. She will decide the plan of care and let the intensive care physician know. PRICILA
[2017-09-16] MEDS: Dextrose 5 %-0.45 % NaCl 1,000 ML IV SCH ×2 (03:22→20:51)
[2017-09-16] MEDS: Acetaminophen 650 MG/20.3 ML UDCUP PER TUBE PRN (04:22)
[2017-09-16 05:25] LABS: Anion Gap 15 mmol/L (10-20); BUN (Urea Nitrogen) 15 mg/dL (7.0-18.7); Calc. Creatinine Clearance 54 mL/min (70-130); Calcium 8.3 mg/dL (7.8-10.44); Carbon Dioxide 21 mmol/L (22-29); Chloride 121 mmol/L (98-107); Estimated GFR-MDRD 51; Glucose 152 mg/dL (70-105); Sodium 154 mmol/L (136-145)
[2017-09-16 05:36] LABS: Anisocytosis SLIGHT = 6-15 cells (100X) (0-5/hpf); Band 6 % (5-11); Elliptocytes SLIGHT = 2-5 cells (100X) (0-1/hpf); Hemoglobin 8.8 g/dL (12.0-16.0); Lymphocytes 12 % (21-51); MDiff Complete? YES; Mean Corpuscular HGB CONC 30.2 g/dL (32.0-36.0); Mean Corpuscular Hemoglobin 25.9 pg (27.0-31.0); Mean Corpuscular Volume 85.7 fl (81.0-99.0); Mean Platelet Volume 7.9 fL (7.4-10.4); Monocytes 4 % (0-10); Neutrophil 78 % (42-75); PLT Morphology Comment Appears Decreased; Platelet Count 113 thou/uL (130-400); RBC Distribution Width 17.9 % (11.5-14.5); Schistocytes SLIGHT = 2-5 cells (100X) (0-1/hpf)
--- NOTE | 2017-09-16 08:13 | RAD ---
CHEST ONE VIEW: History: Respiratory distress. Ventilated patient. Comparison: 09-15-17 FINDINGS: Redemonstration of endotracheal tube and nasogastric tube. Normal cardiac silhouette. No pleural effu bradley. Minimal opacification of the right lung base. No pneumothorax. IMPRESSION: Minimal opacification right lung base. POS: OFF
[2017-09-16] MEDS: Pantoprazole 40 MG VIAL IVP SCH ×2 (11:19→20:51)
[2017-09-16 11:35] VITALS: BMI 18.7
[2017-09-16 14:49] LABS: Actual Bicarbonate (HCO3a) 23.4 mEq/L (22-26); Base Excess (BEa) 0.4 mEq/L (0 (+/-) 2.5); CO2 Tension 30.8 mmHg (35.0-45.0); Hematocrit-ABG 20.8 % (36.0-47.0); O2 Tension (PaO2) 99.8 mmHg (80.0-100.0)
[2017-09-16 14:50] LABS: Calcium, Ionized 1.2 mmol/L (1.12-1.30); Carboxyhemoglobin (COHb) 1.9 gm% (0.0-3.0); Hemoglobin (Hb) 7.8 g/dL (12.0-16.0); Potassium - ABG Lab 2.6 mmol/L (3.70-5.30); Puncture Site RBA
[2017-09-16] MEDS ORDERED: Potassium Phosphate 15 MMOL in Sodium Chloride 0.9% 250 ML 250 ML IV PRN (15:49)
[2017-09-16] MEDS ORDERED: CCU ELECTROLYTE REPLACEMENT PROTOCOL FS PRN (15:49)
[2017-09-16] MEDS ORDERED: Magnesium 2 GM/NS 0.9% 100 ML 2 GM in Premix Bag 1 BAG IVPB PRN (15:49)
[2017-09-16] MEDS ORDERED: Potassium Chloride 20 MEQ TAB PO PRN (15:49)
[2017-09-16] MEDS ORDERED: Potassium Chloride 40 MEQ in Premix Bag 1 BAG IVPB PRN (15:49)
[2017-09-16] MEDS ORDERED: Magnesium Oxide 400 MG TAB PO PRN ×2 (15:49)
[2017-09-16] MEDS ORDERED: Potassium Phosphate 9 MMOL in Sodium Chloride 0.9% 100 ML IVPB PRN (15:49)
[2017-09-16] MEDS ORDERED: Potassium Phosphate 12 MMOL in Sodium Chloride 0.9% 250 ML 250 ML IV PRN (15:49)
[2017-09-16] MEDS ORDERED: Potassium Chloride 40 MEQ in Sodium Chloride 0.9% 250 ML 250 ML IVPB PRN (15:49)
--- NOTE | 2017-09-16 16:09 | RAD ---
AP CHEST: Indication: Donor exam. Comparison: 09-15-17 FINDINGS: ET tube and gastric catheter is stable. Patchy opacities within both lung bases remain. No pleural ef fusion or pneumothorax is evident. Osseous structures are unchanged. No pneumothorax. IMPRESSION: Stable chest. POS: [facility]
[2017-09-16 16:17] LABS: Hemoglobin 8.2 g/dL (12.0-16.0); Mean Corpuscular HGB CONC 31.7 g/dL (32.0-36.0); Mean Corpuscular Hemoglobin 26.6 pg (27.0-31.0); Mean Corpuscular Volume 83.8 fl (81.0-99.0); Mean Platelet Volume 9.1 fL (7.4-10.4); Platelet Count 123 thou/uL (130-400); RBC Distribution Width 17.6 % (11.5-14.5); Red Blood Cell (RBC) Count 3.07 mill/uL (4.20-5.40); White Blood Cell (WBC) Count 22.3 thou/uL (4.8-10.8)
[2017-09-16 16:18] LABS: Bilirubin Negative (Negative); Blood, Urine Trace (Negative); Clarity CLEAR (Clear); Glucose, Urine (Dipstick) Negative (Negative); Leukocyte Negative (Negative); Nitrite Negative (Negative); Protein, Urine (Dipstick) Trace mg/dL (Neg-Trace); Specific Gravity, Urine 1.009 (1.002-1.036); Urobilinogen 0.2 mg/dL (0.2-1.0)
[2017-09-16 16:22] LABS: INR-International Normal Ratio 1.4; PTT 37.6 SEC (22.9-36.1); Prothrombin Time 17.1 SEC (12.0-14.7)
[2017-09-16 16:24] LABS: Bacteria/HPF None Seen HPF (None Seen); Hyaline Casts/LPF 0-3 HYALINE CAST LPF (0-3 Hyaline); Pathc Cast-AUWi Flag 0.13 (0-2.49); RBC/HPF 0-3 HPF (0-3); Squamous Epithelial 0-3 HPF (0-3); WBC/HPF 0-3 HPF (0-3)
--- NOTE | 2017-09-16 16:29 | PDOC.PN ---
- Subjective Encounter Start Date: 09/16/17 Encounter Start Time: 16:28 Subjective: care discussed w Nursing staff and family -: pt intubated and sedated - Objective Resuscitation Status: Resuscitation Status DNR:Do Not Resuscitate MAR Reviewed: Yes Vital Signs & Weight: Vital Signs (12 hours) Temp Pulse Resp Pulse Ox 09/16/17 14:52 108 H 09/16/17 14:00 24 H 09/16/17 13:30 98 09/16/17 12:00 23 H 09/16/17 10:56 69 09/16/17 10:00 22 H 09/16/17 08:00 97.9 F 61 22 H 98 09/16/17 06:43 63 09/16/17 06:00 22 H Weight Admit Weight 121 lb 2.64 oz Weight 119 lb 11.376 oz Most Recent Monitor Data Heart Rate from ECG 112 NIBP 132/84 NIBP BP-Mean 95 Respiration from ECG 26 SpO2 99 I&O: 09/15/17 09/16/17 09/17/17 06:59 06:59 06:59 Intake Total 2565 1587.5 1627 Output Total 2490 1540 1400 Balance 75 47.5 227 Result Diagrams: 09/16/17 16:04 09/16/17 04:20 Additional Labs: Microbiology 09/12/17 13:40 Urine chanel catheter Urine Culture - Final NO GROWTH AT 48 HOURS 09/12/17 13:32 Venous blood - Left Hand Blood Culture - Final Bacillus species,NOT anthracis 09/12/17 13:30 Venous blood - Right Hand Blood Culture - Final Methicillin resistant S.aureus 09/14/17 10:55 Venous blood - Right Hand Blood Culture - Preliminary Specimen has been received and culture in progress. No Growth to date. 09/14/17 10:55 Venous blood - Left Hand Blood Culture - Preliminary Specimen has been received and culture in progress. No Growth to date. Laboratory Tests 09/12/17 09/12/17 09/13/17 13:30 13:32 04:59 WBC 19.0 H Creatinine 0.98 1.34 H 09/13/17 09/14/17 09/14/17 05:00 04:14 04:14 WBC 16.0 H 19.2 H Creatinine 1.41 H 09/16/17 09/16/17 04:20 04:20 WBC 21.0 H Creatinine 1.17 H Phys Exam - Physical Examination Constitutional: NAD intubated HEENT: PERRLA, moist MMs, 2+ tonsils ETT Neck: no JVD Respiratory: no wheezing, clear to auscultation bilateral Cardiovascular: RRR Gastrointestinal: soft, positive bowel sounds Musculoskeletal: no edema, pulses present sedated sedated Skin: no rash Dx/Plan (1) Acute ischemic left MCA stroke Code(s): I63.512 - CEREB INFRC D/T UNSP OCCLS OR STENOS OF LEFT MID CEREB ART Status: Acute (2) Aspiration pneumonia Code(s): J69.0 - PNEUMONITIS DUE TO INHALATION OF FOOD AND VOMIT Status: Acute (3) Methamphetamine abuse Code(s): F15.10 - OTHER STIMULANT ABUSE, UNCOMPLICATED Status: Acute - Plan plan discussed w/ family Pt terminal.family agreeable to withdraw care after organ donation -: cont ETT and supportive care for now -: no corneal,gag per other MDs involved in care * . Review of Systems - Review of Systems Other: can not be obtained due to obtundation - Medications/Allergies Allergies/Adverse Reactions: Allergies Allergy/AdvReac Type Severity Reaction Status Date / Time No Known Drug Allergies Allergy Verified 09/12/17 17:23 Medications: Current Medications Acetaminophen (Tylenol Elixir) 650 mg PER TUBE Q6H PRN PRN Reason: Fever > 101 Last Admin: 09/16/17 04:22 Dose: 650 mg Piperacillin Sod/Tazobactam (Sod 3.375 gm/ Sodium Chloride) 100 mls @ 200 mls/ hr IVPB Q6HR KAYLAH Last Admin: 09/16/17 11:19 Dose: 100 mls Fentanyl Citrate 2,000 mcg/ (Sodium Chloride) 100 mls @ 0 mls/hr IV INF KAYLAH; Per Protocol PRN Reason: Protocol Stop: 10/12/17 19:01 Fentanyl Citrate (Fentanyl Bolus) 250 mls @ 0 mls/hr IVPB PRN PRN; As Directed PRN Reason: Breakthrough pain Stop: 10/12/17 19:01 Dextrose/Sodium Chloride (D5 1/2 Ns) 1,000 mls @ 75 mls/hr IV .[id number] KAYLAH Last Admin: 09/16/17 03:22 Dose: 1,000 mls Nicardipine HCl 25 mg/ Sodium (Chloride) 260 mls @ 0 mls/hr IVPB INF KAYLAH; Titrate PRN Reason: Protocol Last Admin: 09/16/17 13:14 Dose: 260 mls Potassium Chloride 40 meq/ (Sodium Chloride) 270 mls @ 135 mls/hr IVPB ASDIR PRN PRN Reason: FOR SERUM K+ 2.5 - 3.5 Potassium Chloride 40 meq/ (Device) 100 mls @ 50 mls/hr IVPB ASDIR PRN PRN Reason: FOR SERUM K+ 2.5 - 3.5 Magnesium Sulfate 1 gm/ Sodium (Chloride) 102 mls @ 102 mls/hr IV PRN PRN PRN Reason: MAG LEVEL 1.4 - 2.0 Magnesium Sulfate 2 gm/ Device 100 mls @ 100 mls/hr IVPB ASDIR PRN PRN Reason: MAGNESIUM < 1.4 Potassium Phosphate 9 mmol/ (Sodium Chloride) 103 mls @ 25.75 mls/hr IVPB ASDIR PRN PRN Reason: Phosphate 1.0-1.8 Potassium Phosphate 12 mmol/ (Sodium Chloride) 254 mls @ 63.5 mls/hr IV ASDIR PRN PRN Reason: Serum phosphate 0.5-0.9 Potassium Phosphate 15 mmol/ (Sodium Chloride) 255 mls @ 63.75 mls/hr IV ASDIR PRN PRN Reason: Serum Phos < 0.5 Lorazepam (Ativan) 2 mg SLOW IVP Q2H PRN PRN Reason: Anxiety to achieve Alberto 2-3 Stop: 10/12/17 19:01 Magnesium Oxide (Magnesium Oxide) 400 mg PO BIDPRN PRN PRN Reason: FOR SERUM MAG 1.4 - 2.0 Magnesium Oxide (Magnesium Oxide) 800 mg PO PRN PRN PRN Reason: FOR SERUM MAG < 1.4 Miscellaneous Medication (Phos-Nak) 1 pkt PO TIDPRN PRN PRN Reason: FOR PHOS LEVEL 1.0 - 1.8 Miscellaneous Medication (Phos-Nak) 2 pkt PO TIDPRN PRN PRN Reason: FOR PHOS LEVEL 0.5 - 1.0 Morphine Sulfate (Morphine) 2 mg SLOW IVP Q2H PRN PRN Reason: Breakthrough pain Stop: 10/12/17 19:01 Ccu Electrolyte (Replacement Protocol) 0 each FS PRN PRN PRN Reason: FOR ELECTROLYTE REPLACEMENT Ondansetron HCl (Zofran) 4 mg IVP Q6H PRN PRN Reason: Nausea/Vomiting Pantoprazole Sodium (Protonix) 40 mg IVP Q12HR [facility] Last Admin: 09/16/17 11:19 Dose: 40 mg Potassium Chloride (K-Dur) 40 meq PO ASDIR PRN PRN Reason: FOR SERUM K+ 2.5 - 3.5 Potassium Chloride (Klor-Con) 40 meq PER TUBE ASDIR PRN PRN Reason: FOR SERUM K+ 2.5-3.5 Propofol (Diprivan) 1,000 mg IV INF PRN; Protocol PRN Reason: TO ACHIEVE ALBERTO SCORE 2-3 Stop: 10/12/17 19:01 Last Admin: 09/15/17 04:07 Dose: 1,000 mg Sodium Chloride (Flush - Normal Saline) 10 ml IVF Q12HR [facility] Last Admin: 09/16/17 11:19 Dose: 10 ml Sodium Chloride (Flush - Normal Saline) 10 ml IVF PRN PRN PRN Reason: Saline Flush
[2017-09-16 16:31] LABS: Anisocytosis SLIGHT = 6-15 cells (100X) (0-5/hpf); Band 8 % (5-11); Hypochromia SLIGHT = 6-15 cells (100X) (0-5/hpf); Lymphocytes 6 % (21-51); MDiff Complete? YES; Myelocyte 1 % (0-0); Neutrophil 85 % (42-75); Ovalocytes SLIGHT = 2-5 cells (100X) (0-1/hpf); PLT Morphology Comment Appears Decreased; Polychromasia SLIGHT = 2-3 cells (100X) (0-2/hpf); Schistocytes SLIGHT = 2-5 cells (100X) (0-1/hpf); Target Cells SLIGHT = 2-5 cells (100X) (0-1/hpf); Tear Drops SLIGHT = 2-5 cells (100X) (0-1/hpf)
[2017-09-16 16:37] LABS: ALT (SGPT) 16 U/L (8-55); AST (SGOT) 22 U/L (5-34); Albumin 2.6 g/dL (3.5-5.0); Alkaline Phosphatase 160 U/L (40-150); Anion Gap 11 mmol/L (10-20); BUN (Urea Nitrogen) 15 mg/dL (7.0-18.7); Bilirubin, Total 0.9 mg/dL (0.2-1.2); Calc. Creatinine Clearance 58 mL/min (70-130); Calcium 8.7 mg/dL (7.8-10.44); Carbon Dioxide 25 mmol/L (22-29); Chloride 123 mmol/L (98-107); Estimated GFR-MDRD 55; Globulin 4.4 g/dL (2.4-3.5); Glucose 172 mg/dL (70-105); Lipase 12 U/L (8-78); Phosphorus 3.3 mg/dL (2.3-4.7); Sodium 156 mmol/L (136-145)
[2017-09-16 16:45] LABS: Potassium 2.9 mmol/L (3.5-5.1)
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
--- NOTE | 2017-09-16 17:46 | OP ---
DATE OF PROCEDURE: 09/16/2017 PROCEDURES: 1. Central line placement. 2. Arterial line placement. DESCRIPTION OF PROCEDURE: Right groin was prepped with 3 chlorhexidine swabs. Sterile drape was saira lied. Femoral vein was easily cannulated first stick with an introducer needle. Femoral wire was in troduced and the needle was withdrawn. Femoral artery was then cannulated with an introducer needle. The femoral artery wire was then intro duced and the needle was withdrawn. Femoral vein site was then dilated with a vein dilator after a small incision was made with a #11 lisa de. Triple-lumen catheter was sewn in place x2. Good blood return was obtained from all 3 ports. Femoral artery catheter 5 Hungarian was then inserted and sewn in place x2. This was connected to the a rterial line. Sterile dressings were applied. Arterial line functioned well with good waveform. It must be noted that no local anesthesia was used with introduction of the lines. She did pull her leg back with needle punctures. She is gagging this afternoon today with suctioning of her mouth as well.
[2017-09-16 19:15] LABS: pH, Arterial 7.48 (7.35-7.45)
[2017-09-16 19:16] LABS: Actual Bicarbonate (HCO3a) 23.6 mEq/L (22-26); Base Excess (BEa) 0.1 mEq/L (0 (+/-) 2.5); CO2 Tension 32.8 mmHg (35.0-45.0); Calcium, Ionized 1.2 mmol/L (1.12-1.30); Carboxyhemoglobin (COHb) 1.6 gm% (0.0-3.0); Hemoglobin (Hb) 6.7 g/dL (12.0-16.0); O2 Tension (PaO2) 117.3 mmHg (80.0-100.0); Potassium - ABG Lab 3.5 mmol/L (3.70-5.30); Puncture Site LINE
--- NOTE | 2017-09-16 20:34 | RAD ---
CHEST ONE VIEW 09/16/17 HISTORY: Donor. COMPARISON: Chest radiograph same day. FINDINGS: Endotracheal tube to the level of the clavicles. Enteric tube tip is below diaphragm and out of field of view. Diffuse air space opacities are present, similar appearing. IMPRESSION: Lines and tubes as above. Neurogenic edema is similar. POS: [facility]
[2017-09-16 21:33] LABS: INR-International Normal Ratio 1.4
[2017-09-16 21:34] LABS: PTT 36.4 SEC (22.9-36.1)
[2017-09-16 21:38] LABS: #Eosinphils 0.1 thou/uL (0.0-0.7); #Lymphocytes 1.6 thou/uL (1.20-3.40); #Monocytes 0.8 thou/uL (0.11-0.59); #Neutrophils 16.3 thou/uL (1.40-6.50); %Basophils 0.1 % (0.0-1.0); %Eosinophils 0.6 % (0.0-10.0); %Lymphocytes 8.3 % (21.0-51.0); %Monocytes 4.3 % (0.0-10.0); %Neutrophils 86.7 % (42.0-75.0); Hemoglobin 7.6 g/dL (12.0-16.0); Mean Corpuscular Hemoglobin 26.4 pg (27.0-31.0); Mean Corpuscular Volume 85.2 fl (81.0-99.0); Mean Platelet Volume 7.4 fL (7.4-10.4); Platelet Count 91 thou/uL (130-400); RBC Distribution Width 18.1 % (11.5-14.5); Red Blood Cell (RBC) Count 2.89 mill/uL (4.20-5.40); White Blood Cell (WBC) Count 18.8 thou/uL (4.8-10.8)
[2017-09-16 21:51] LABS: ALT (SGPT) 17 U/L (8-55); AST (SGOT) 32 U/L (5-34); Albumin 2.4 g/dL (3.5-5.0); Alkaline Phosphatase 186 U/L (40-150); Anion Gap 10 mmol/L (10-20); BUN (Urea Nitrogen) 16 mg/dL (7.0-18.7); Bilirubin, Total 0.7 mg/dL (0.2-1.2); Calc. Creatinine Clearance 54 mL/min (70-130); Calcium 8.4 mg/dL (7.8-10.44); Carbon Dioxide 26 mmol/L (22-29); Chloride 124 mmol/L (98-107); Estimated GFR-MDRD 51; Globulin 4.3 g/dL (2.4-3.5); Glucose 228 mg/dL (70-105); Lipase 32 U/L (8-78); Phosphorus 4.5 mg/dL (2.3-4.7); Potassium 3.3 mmol/L (3.5-5.1); Protein, Total 6.7 g/dL (6.0-8.3); Sodium 157 mmol/L (136-145)
[2017-09-16 23:26] LABS: Base Excess (BEa) -2.3 mEq/L (0 (+/-) 2.5); CO2 Tension 41.8 mmHg (35.0-45.0); Hematocrit-ABG 16.9 % (36.0-47.0); O2 Tension (PaO2) 117.4 mmHg (80.0-100.0); pH, Arterial 7.36 (7.35-7.45)
[2017-09-16 23:27] LABS: Calcium, Ionized 1.2 mmol/L (1.12-1.30); Carboxyhemoglobin (COHb) 1.8 gm% (0.0-3.0); Hemoglobin (Hb) 6.9 g/dL (12.0-16.0); Potassium - ABG Lab 4.8 mmol/L (3.70-5.30); Puncture Site LINE
[2017-09-17] MEDS: Phenylephrine HCL 20 MG in Sodium Chloride 0.9% 250 ML 250 ML IVPB PRN ×4 (00:13→11:35)
[2017-09-17 03:36] LABS: CO2 Tension 42.8 mmHg (35.0-45.0); pH, Arterial 7.36 (7.35-7.45)
[2017-09-17 03:37] LABS: Actual Bicarbonate (HCO3a) 23.5 mEq/L (22-26); Base Excess (BEa) -1.9 mEq/L (0 (+/-) 2.5); Hematocrit-ABG 16.5 % (36.0-47.0); Hemoglobin (Hb) 6.8 g/dL (12.0-16.0); O2 Tension (PaO2) 108.2 mmHg (80.0-100.0)
[2017-09-17 03:38] LABS: Calcium, Ionized 1.3 mmol/L (1.12-1.30); Carboxyhemoglobin (COHb) 1.7 gm% (0.0-3.0); Potassium - ABG Lab 4.2 mmol/L (3.70-5.30)
[2017-09-17 03:39] LABS: Puncture Site LINE
[2017-09-17 04:50] LABS: INR-International Normal Ratio 1.3; PTT 34.5 SEC (22.9-36.1); Prothrombin Time 16.4 SEC (12.0-14.7)
[2017-09-17 04:58] LABS: Anion Gap 10 mmol/L (10-20); BUN (Urea Nitrogen) 18 mg/dL (7.0-18.7); Calc. Creatinine Clearance 56 mL/min (70-130); Calcium 8.3 mg/dL (7.8-10.44); Carbon Dioxide 23 mmol/L (22-29); Estimated GFR-MDRD 55; Glucose 160 mg/dL (70-105); Potassium 4.2 mmol/L (3.5-5.1); Sodium 157 mmol/L (136-145)
[2017-09-17 05:01] LABS: Chloride 128 mmol/L (98-107)
[2017-09-17 05:04] LABS: ALT (SGPT) 20 U/L (8-55); AST (SGOT) 29 U/L (5-34); Albumin 2.3 g/dL (3.5-5.0); Alkaline Phosphatase 161 U/L (40-150); Anion Gap 8 mmol/L (10-20); BUN (Urea Nitrogen) 19 mg/dL (7.0-18.7); Bilirubin, Total 0.4 mg/dL (0.2-1.2); Calc. Creatinine Clearance 55 mL/min (70-130); Calcium 8.3 mg/dL (7.8-10.44); Carbon Dioxide 26 mmol/L (22-29); Chloride 125 mmol/L (98-107); Estimated GFR-MDRD 53; Globulin 3.9 g/dL (2.4-3.5); Glucose 163 mg/dL (70-105); Lipase 13 U/L (8-78); Magnesium 2.2 mg/dL (1.6-2.6); Potassium 4.1 mmol/L (3.5-5.1); Protein, Total 6.2 g/dL (6.0-8.3); Sodium 155 mmol/L (136-145)
[2017-09-17] MEDS: Piperacillin/Tazobactam 3.375 GM in Sodium Chloride 0.9% 100 ML IVPB SCH ×2 (05:24→11:25)
[2017-09-17 05:50] LABS: Band 2 % (5-11); Eosinophils 5 % (0-10); Hemoglobin 6.9 g/dL (12.0-16.0); Lymphocytes 14 % (21-51); MDiff Complete? YES; Mean Corpuscular HGB CONC 30.1 g/dL (32.0-36.0); Mean Corpuscular Hemoglobin 25.9 pg (27.0-31.0); Mean Corpuscular Volume 85.9 fl (81.0-99.0); Mean Platelet Volume 11.6 fL (7.4-10.4); Metamyelocyte 1 % (0-0); Monocytes 5 % (0-10); Neutrophil 72 % (42-75); PLT Morphology Comment Appears Adequate; Platelet Count 160 thou/uL (130-400); RBC Distribution Width 18.2 % (11.5-14.5); Reactive Lymphocytes 1 % (0-10); Red Blood Cell (RBC) Count 2.68 mill/uL (4.20-5.40); White Blood Cell (WBC) Count 21.5 thou/uL (4.8-10.8)
[2017-09-17 06:50] LABS: Actual Bicarbonate (HCO3a) 23.5 mEq/L (22-26); Base Excess (BEa) -1.7 mEq/L (0 (+/-) 2.5); CO2 Tension 41.8 mmHg (35.0-45.0); Carboxyhemoglobin (COHb) 1.7 gm% (0.0-3.0); Hematocrit-ABG 15.9 % (36.0-47.0); Hemoglobin (Hb) 6.6 g/dL (12.0-16.0); O2 Tension (PaO2) 106.1 mmHg (80.0-100.0); pH, Arterial 7.37 (7.35-7.45)
[2017-09-17 06:51] LABS: Puncture Site LINE
[2017-09-17] MEDS: Pantoprazole 40 MG VIAL IVP SCH (07:20)
--- NOTE | 2017-09-17 07:52 | RAD ---
SINGLE VIEW OF THE CHEST: COMPARISON: 09/16/17. HISTORY: Neurogenic edema and respiratory failure. FINDINGS: A single view of the chest shows a normal-size cardiomediastinal silhouette. The endotracheal tube a nd NG tube are unchanged in position. There may be an airspace opacity projecting over the right low er lobe. IMPRESSION: Right lower lobe infiltrate. POS: OFF
[2017-09-17 10:21] LABS: Actual Bicarbonate (HCO3a) 24.2 mEq/L (22-26); Base Excess (BEa) -0.6 mEq/L (0 (+/-) 2.5); Calcium, Ionized 1.3 mmol/L (1.12-1.30); Carboxyhemoglobin (COHb) 1.6 gm% (0.0-3.0); Hematocrit-ABG 15.9 % (36.0-47.0); Hemoglobin (Hb) 6.9 g/dL (12.0-16.0); O2 Tension (PaO2) 117.4 mmHg (80.0-100.0); Potassium - ABG Lab 4.2 mmol/L (3.70-5.30)
[2017-09-17 10:22] LABS: Puncture Site LINE
[2017-09-17 10:36] LABS: PTT 37.4 SEC (22.9-36.1)
[2017-09-17 10:42] LABS: Hemoglobin 6.9 g/dL (12.0-16.0); Mean Corpuscular HGB CONC 29.3 g/dL (32.0-36.0); Mean Corpuscular Hemoglobin 25.4 pg (27.0-31.0); Mean Corpuscular Volume 86.6 fl (81.0-99.0); Mean Platelet Volume 11.2 fL (7.4-10.4); Platelet Count 153 thou/uL (130-400); RBC Distribution Width 18.3 % (11.5-14.5); Red Blood Cell (RBC) Count 2.71 mill/uL (4.20-5.40); White Blood Cell (WBC) Count 17.9 thou/uL (4.8-10.8)
--- NOTE | 2017-09-17 10:54 | RAD ---
SUPINE PORTABLE CHEST: HISTORY: Dyspnea. Followup CCU and intubation. COMPARISON: 09/17/17 at 4:45 a.m. FINDINGS: ET tube and NG tube remain in place. Lungs appear well aerated and clear of confluent infiltrate. S ome hazy opacity in the right lower lung was noted on a film earlier today and is unchanged and could represent early infiltrate. IMPRESSION: No evidence of interval change. POS: [facility]
[2017-09-17 11:03] LABS: ALT (SGPT) 18 U/L (8-55); AST (SGOT) 27 U/L (5-34); Albumin 2.3 g/dL (3.5-5.0); Alkaline Phosphatase 163 U/L (40-150); Anion Gap 8 mmol/L (10-20); BUN (Urea Nitrogen) 18 mg/dL (7.0-18.7); Bilirubin, Total 0.4 mg/dL (0.2-1.2); Calc. Creatinine Clearance 53 mL/min (70-130); Calcium 8.3 mg/dL (7.8-10.44); Carbon Dioxide 26 mmol/L (22-29); Estimated GFR-MDRD 51; Glucose 108 mg/dL (70-105); Lipase 11 U/L (8-78); Magnesium 2.3 mg/dL (1.6-2.6); Phosphorus 3.1 mg/dL (2.3-4.7); Protein, Total 6.3 g/dL (6.0-8.3); Sodium 158 mmol/L (136-145)
[2017-09-17 11:10] LABS: Chloride 128 mmol/L (98-107)
[2017-09-17 11:13] LABS: #Eosinphils 0.4 thou/uL (0.0-0.7); #Lymphocytes 2.7 thou/uL (1.20-3.40); #Monocytes 0.9 thou/uL (0.11-0.59); %Basophils 0.1 % (0.0-1.0); %Lymphocytes 14.8 % (21.0-51.0); %Monocytes 5.1 % (0.0-10.0)
[2017-09-17 11:15] LABS: Band 5 % (5-11); Bite Cells SLIGHT = 2-5 cells (100X) (0-1/hpf); Lymphocytes 19 % (21-51); MDiff Complete? YES; Neutrophil 75 % (42-75); PLT Morphology Comment Appears Adequate; Polychromasia SLIGHT = 2-3 cells (100X) (0-2/hpf); Reactive Lymphocytes 1 % (0-10); Schistocytes SLIGHT = 2-5 cells (100X) (0-1/hpf)
[2017-09-17] MEDS ORDERED: Iopamidol 370 76% 100 ML VIAL ONE (11:35)
[2017-09-17 11:40] LABS: INR-International Normal Ratio 1.2; Prothrombin Time 15.9 SEC (12.0-14.7)
--- NOTE | 2017-09-17 13:58 | PDOC.PN ---
- Subjective Encounter Start Date: 09/17/17 Encounter Start Time: 13:56 Subjective: stopped breathing over the vent overnight - Objective Resuscitation Status: Resuscitation Status DNR:Do Not Resuscitate MAR Reviewed: Yes Vital Signs & Weight: Vital Signs (12 hours) Temp Pulse Resp Pulse Ox 09/17/17 13:08 72 09/17/17 12:00 16 09/17/17 10:27 80 09/17/17 10:00 16 09/17/17 08:00 99.3 F 79 16 100 09/17/17 07:56 16 09/17/17 06:33 72 09/17/17 06:00 16 09/17/17 04:00 16 09/17/17 02:00 16 Weight Admit Weight 121 lb 2.64 oz Weight 117 lb 1.047 oz Most Recent Monitor Data Heart Rate from ECG 73 NIBP 109/74 NIBP BP-Mean 88 Respiration from ECG 16 SpO2 96 I&O: 09/16/17 09/17/17 09/18/17 06:59 06:59 06:59 Intake Total 1587.5 5430 Output Total 1540 3125 1465 Balance 47.5 2305 -1465 Result Diagrams: 09/17/17 10:03 09/17/17 10:22 Additional Labs: Microbiology 09/12/17 13:40 Urine chanel catheter Urine Culture - Final NO GROWTH AT 48 HOURS 09/12/17 13:32 Venous blood - Left Hand Blood Culture - Final Bacillus species,NOT anthracis 09/12/17 13:30 Venous blood - Right Hand Blood Culture - Final Methicillin resistant S.aureus 09/14/17 10:55 Venous blood - Right Hand Blood Culture - Preliminary NO GROWTH AT 48 HOURS 09/14/17 10:55 Venous blood - Left Hand Blood Culture - Preliminary NO GROWTH AT 48 HOURS Phys Exam - Physical Examination Constitutional: NAD ETT.Obtunded Respiratory: no wheezing Cardiovascular: RRR Gastrointestinal: soft Musculoskeletal: no edema Skin: no rash Dx/Plan (1) Acute ischemic left MCA stroke Code(s): I63.512 - CEREB INFRC D/T UNSP OCCLS OR STENOS OF LEFT MID CEREB ART Status: Acute (2) Aspiration pneumonia Code(s): J69.0 - PNEUMONITIS DUE TO INHALATION OF FOOD AND VOMIT Status: Acute (3) Methamphetamine abuse Code(s): F15.10 - OTHER STIMULANT ABUSE, UNCOMPLICATED Status: Acute - Plan Brain perfusion scan done w no activity.Organ donation in progress -: cont following from periphery -: PCCM following. vent till organs procured * . Review of Systems - Review of Systems Other: Can not be obtained due to Anoxic brain injury - Medications/Allergies Allergies/Adverse Reactions: Allergies Allergy/AdvReac Type Severity Reaction Status Date / Time No Known Drug Allergies Allergy Verified 09/12/17 17:23 Medications: Current Medications Acetaminophen (Tylenol Elixir) 650 mg PER TUBE Q6H PRN PRN Reason: Fever > 101 Last Admin: 09/16/17 04:22 Dose: 650 mg Piperacillin Sod/Tazobactam (Sod 3.375 gm/ Sodium Chloride) 100 mls @ 200 mls/ hr IVPB Q6HR KAYLAH Last Admin: 09/17/17 11:25 Dose: 100 mls Fentanyl Citrate 2,000 mcg/ (Sodium Chloride) 100 mls @ 0 mls/hr IV INF KAYLAH; Per Protocol PRN Reason: Protocol Stop: 10/12/17 19:01 Fentanyl Citrate (Fentanyl Bolus) 250 mls @ 0 mls/hr IVPB PRN PRN; As Directed PRN Reason: Breakthrough pain Stop: 10/12/17 19:01 Dextrose/Sodium Chloride (D5 1/2 Ns) 1,000 mls @ 75 mls/hr IV .[id number] KAYLAH Last Admin: 09/16/17 20:51 Dose: 1,000 mls Nicardipine HCl 25 mg/ Sodium (Chloride) 260 mls @ 0 mls/hr IVPB INF KAYLAH; Titrate PRN Reason: Protocol Last Admin: 09/16/17 13:14 Dose: 260 mls Potassium Chloride 40 meq/ (Sodium Chloride) 270 mls @ 135 mls/hr IVPB ASDIR PRN PRN Reason: FOR SERUM K+ 2.5 - 3.5 Potassium Chloride 40 meq/ (Device) 100 mls @ 50 mls/hr IVPB ASDIR PRN PRN Reason: FOR SERUM K+ 2.5 - 3.5 Last Admin: 09/16/17 16:47 Dose: 100 mls Magnesium Sulfate 1 gm/ Sodium (Chloride) 102 mls @ 102 mls/hr IV PRN PRN PRN Reason: MAG LEVEL 1.4 - 2.0 Magnesium Sulfate 2 gm/ Device 100 mls @ 100 mls/hr IVPB ASDIR PRN PRN Reason: MAGNESIUM < 1.4 Potassium Phosphate 9 mmol/ (Sodium Chloride) 103 mls @ 25.75 mls/hr IVPB ASDIR PRN PRN Reason: Phosphate 1.0-1.8 Potassium Phosphate 12 mmol/ (Sodium Chloride) 254 mls @ 63.5 mls/hr IV ASDIR PRN PRN Reason: Serum phosphate 0.5-0.9 Potassium Phosphate 15 mmol/ (Sodium Chloride) 255 mls @ 63.75 mls/hr IV ASDIR PRN PRN Reason: Serum Phos < 0.5 Phenylephrine HCl 20 mg/ (Sodium Chloride) 252 mls @ 0 mls/hr IVPB INF PRN; Protocol; As Directed PRN Reason: TO MAINTAIN MAP > 65 Last Admin: 09/17/17 11:35 Dose: 252 mls Lorazepam (Ativan) 2 mg SLOW IVP Q2H PRN PRN Reason: Anxiety to achieve Alberto 2-3 Stop: 10/12/17 19:01 Magnesium Oxide (Magnesium Oxide) 400 mg PO BIDPRN PRN PRN Reason: FOR SERUM MAG 1.4 - 2.0 Magnesium Oxide (Magnesium Oxide) 800 mg PO PRN PRN PRN Reason: FOR SERUM MAG < 1.4 Miscellaneous Medication (Phos-Nak) 1 pkt PO TIDPRN PRN PRN Reason: FOR PHOS LEVEL 1.0 - 1.8 Miscellaneous Medication (Phos-Nak) 2 pkt PO TIDPRN PRN PRN Reason: FOR PHOS LEVEL 0.5 - 1.0 Morphine Sulfate (Morphine) 2 mg SLOW IVP Q2H PRN PRN Reason: Breakthrough pain Stop: 10/12/17 19:01 Ccu Electrolyte (Replacement Protocol) 0 each FS PRN PRN PRN Reason: FOR ELECTROLYTE REPLACEMENT Ondansetron HCl (Zofran) 4 mg IVP Q6H PRN PRN Reason: Nausea/Vomiting Pantoprazole Sodium (Protonix) 40 mg IVP Q12HR KAYLAH Last Admin: 09/17/17 07:20 Dose: 40 mg Potassium Chloride (K-Dur) 40 meq PO ASDIR PRN PRN Reason: FOR SERUM K+ 2.5 - 3.5 Potassium Chloride (Klor-Con) 40 meq PER TUBE ASDIR PRN PRN Reason: FOR SERUM K+ 2.5-3.5 Last Admin: 09/16/17 22:08 Dose: 40 meq Propofol (Diprivan) 1,000 mg IV INF PRN; Protocol PRN Reason: TO ACHIEVE ALBERTO SCORE 2-3 Stop: 10/12/17 19:01 Last Admin: 09/15/17 04:07 Dose: 1,000 mg Sodium Chloride (Flush - Normal Saline) 10 ml IVF Q12HR KAYLAH Last Admin: 09/17/17 07:20 Dose: 10 ml Sodium Chloride (Flush - Normal Saline) 10 ml IVF PRN PRN PRN Reason: Saline Flush
[2017-09-17] MEDS: Dextrose 5 %-0.45 % NaCl 1,000 ML IV SCH (14:28)
[2017-09-17] MEDS ORDERED: Lidocaine 1% (PF) 30 ML VIAL ONE (14:48)
--- NOTE | 2017-09-17 14:53 | NM ---
RADIONUCLIDE BRAIN CEREBRAL FLOW STUDY: Date: 09/17/17 HISTORY: Brain . Large cerebellar infarction and diffuse cerebellar edema. RADIOPHARMACEUTICAL: 30 mCi technetium-99m HMPAO injected intravenously. FINDINGS: Planar images of the brain were performed. No intracerebral blood flow is seen. No tracer uptake is n oted in the brain parenchyma on the delayed images. IMPRESSION: Absent brain perfusion. POS: [facility]
[2017-09-17] MEDS ORDERED: Sodium Chloride 0.9% 1,000 ML IV SCH (15:45)
[2017-09-17] MEDS ORDERED: Phenylephrine 0.25% Nasal Spray 15 ML BOT ONE (16:05)
[2017-09-17] MEDS ORDERED: Norepinephrine 8 MG/0.9% NS 250 ML ONE (16:08)
[2017-09-17 16:24] VITALS: BP 94/48
[2017-09-17 16:31] LABS: Bilirubin Negative (Negative); Blood, Urine Small (Negative); Clarity CLEAR (Clear); Glucose, Urine (Dipstick) Negative (Negative); Leukocyte Negative (Negative); Nitrite Negative (Negative); Protein, Urine (Dipstick) Negative (Neg-Trace); Specific Gravity, Urine 1.009 (1.002-1.036); Urobilinogen 0.2 mg/dL (0.2-1.0)
[2017-09-17 16:37] LABS: Bacteria/HPF None Seen HPF (None Seen); Hyaline Casts/LPF 0-3 HYALINE CAST LPF (0-3 Hyaline); Pathc Cast-AUWi Flag 0.13 (0-2.49); Squamous Epithelial None Seen HPF (0-3); WBC/HPF 0-3 HPF (0-3)
--- NOTE | 2017-09-17 16:42 | RAD ---
CHEST ONE VIEW 09/17/17 HISTORY: 41-year-old female with history of STA protocol, respiratory insufficiency. COMPARISON: 09/17/17 NG tube and endotracheal tubes remain in satisfactory location. There are patchy bilateral lower lobe parenchymal changes with some small pleural effusions, overall stable from the prior study. IMPRESSION: Stable bilateral lower lobe pleural and parenchymal opacity changes and some bilateral vascular conge stion. Continued short term followup. POS: [facility]
[2017-09-17 16:47] LABS: Base Excess (BEa) -3.1 mEq/L (0 (+/-) 2.5); O2 Tension (PaO2) 59.7 mmHg (80.0-100.0); pH, Arterial 7.42 (7.35-7.45)
[2017-09-17 16:48] LABS: Calcium, Ionized 1.2 mmol/L (1.12-1.30); Carboxyhemoglobin (COHb) 1.7 gm% (0.0-3.0); Hematocrit-ABG 13.2 % (36.0-47.0); Hemoglobin (Hb) 6.4 g/dL (12.0-16.0); Potassium - ABG Lab 3.6 mmol/L (3.70-5.30); Puncture Site LINE
[2017-09-17 16:59] VITALS: TEMP 98.1
[2017-09-17] MEDS ORDERED: Insulin Regular 300 UNITS/3 ML VIAL IVP SCH (17:15)
[2017-09-17] MEDS ORDERED: methylPREDNISolone Sod Succ 2 GM in Sodium Chloride 0.9% 100 ML IVPB SCH (17:15)
[2017-09-17] MEDS ORDERED: Levothyroxine Sodium 400 MCG in Sodium Chloride 0.9% 100 ML IVPB SCH (17:15)
[2017-09-17] MEDS ORDERED: Dextrose 50% Abboject 50 ML SYRINGE SLOW IVP SCH (17:15)
--- NOTE | 2017-09-17 17:26 | PRG ---
DATE OF SERVICE: 09/17/2017 SUBJECTIVE: Cynthia Meyer lost all reflexes overnight. PHYSICAL EXAMINATION: VITAL SIGNS: Blood pressure 104/67, heart rate 67, respiratory rate is 16. Intake and output is positive 2305. LUNGS: Surprisingly, her lungs are clear. HEART: Regular rhythm. ABDOMEN: Soft. LABORATORY DATA: White count 17.9. Hemoglobin 6.9, 7.6 yesterday. Creatinine is 1.16. BUN is 18, chlorides up to 128. IMPRESSION: Lost reflexes, I suspected she had clinically brain . Nuclear perfusion study confirms this. She has been pronounced at 1445 hours. She does probably have some degree of diabetes insipidus is developing. We will continue mange her hoping that she will be a candidate for donation. Critical care time 30 min excluding procedures. PRICILA
--- NOTE | 2017-09-17 17:46 | OP ---
09/17/2017 PROCEDURE PERFORMED: Fiberoptic bronchoscopy. OPTOMETRIC COORDINATOR: Jose L Navarro M.D. INDICATION: Preorgan donation. PROCEDURE IN DETAIL: The patient was clinically brain . The bronchoscope was introduced and passed down the main estevan, which was sharp. The trachea was normal with main estevan. Right lower lobe, right middle lobe, right upper lobe, left lower lobe and left upper lobe were free of endobronchial lesions. There were no secretions seen. The right and left main stem bronchi were separately irrigated with saline and suctioned and cultured separately. The patient tolerated the procedure well. [facility]ENTER[facility]an[facility]
--- NOTE | 2017-09-18 12:03 | DS ---
DATE OF ADMISSION: 09/12/2017 DATE OF : 09/17/2017. CAUSE OF : 1. Anoxic brain injury. 2. Acute left middle cerebral artery infarction with cerebral edema and possible herniation. 3. Aspiration pneumonia. 4. Methamphetamine abuse. CONSULTATIONS IN HOUSE: Include Neurology, Dr. Domingo and Ean. Pulmonary Critical Care, Dr. Blas marmolejo. PROCEDURES DONE WHILE IN THE HOSPITAL: 1. CT scan of the brain on 09/12/2017 as the cervical spinal CT. CT of the brain showed severe acut e cytotoxic edema within the left cerebral hemisphere, likely related to CVA without any hemorrhage. CT scan of the cervical spine was without any osseous abnormalities. 2. CT scan of the abdomen and pelvis, which was unremarkable as well. This was done with IV contras t. 3. CT angio of the thorax, which is negative for any pulmonary embolism, but shows pneumomediastinum with dense bilateral patchy airspace disease. 4. Cardiac catheterization to evaluate candidacy for harvesting organs after . It is negative for any coronary artery disease. 5. Transthoracic echocardiogram, which shows preserved EF of 55%-60%, mild to moderate mitral regurg and moderate tricuspid regurgitation and no thrombus in the cardiac chambers. 6. 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 7. Multiple chest x-rays. 8. Nuclear medicine cerebral perfusion study on 09/17/2017, which shows absent brain perfusion. 9. Placement of central venous catheter and arterial line as well as bronchoscopy for pre-organ mabel tion testing. HISTORY OF PRESENTING ILLNESS: Ms. Duggan was an unfortunate 41-year-old female without any known significant past medical history who was brought in after she was found down. The patient was ruthy t in intubated out of the hospital. Evaluation in the emergency room showed a CT scan of the brain c onsistent with cerebral infarction in the left MCA territory. Further tests were done as mentioned anel king and were negative for PE. She was admitted to Critical Care Unit with a diagnosis of massive le ft MCA, left MIRTA distribution stroke. Her urine drug screen was positive for amphetamine and methamp hetamine. Please see admission history and physical for further details. She was started on symptom atic and supportive care with Neurology consultation, Neurosurgery consultation, IV empiric antibioti c and Pulmonary and Critical Care consultations. HOSPITAL COURSE: The patient was seen by Neurology. The patient had rather fairly rapid decline. S he had evidence of significant cerebral edema upon presentation and eventually started herniating and nuclear medicine perfusion scan was done, which showed brain . She underwent multiple procedur es as outlined above, which confirmed this finding. Eventually, she was pronounced brain on by Dr. Navarro. The family wished organ donation, so organ donation services were consulted an d she underwent diagnostic investigations to ascertain her candidacy for donation: Including cardiac catheterization and bronchoscopy as mentioned above. After she was pronounced , the care was polk nded over to the organ donation physicians at [facility]. She was seen and examined prior to declaration of brain . Please see Hospitalist progress note from the day of for further details. Please refer to the [employer] EMR for day-to-day details a s well.
== END 2017-09-17 14:45 | disposition expired | DRG 64 ==
LOC: ERS 12:37 → CCU 16:21
PROVIDERS: ADMIT Emergency Medicine; ATTEND Internal Medicine
PROC: 5A1955Z Respiratory Ventilation, Greater than 96 Consecutive Hours (ICD-10-PCS; principal; 2017-09-12)
PROC: 30233N1 Transfusion of Nonautologous Red Blood Cells into Peripheral Vein, Percutaneous Approach (ICD-10-PCS; 2017-09-13)
PROC: 06HY33Z Insertion of Infusion Device into Lower Vein, Percutaneous Approach (ICD-10-PCS; 2017-09-16)
PROC: 04HY32Z Insertion of Monitoring Device into Lower Artery, Percutaneous Approach (ICD-10-PCS; 2017-09-16)
PROC: 0BJ08ZZ Inspection of Tracheobronchial Tree, Via Natural or Artificial Opening Endoscopic (ICD-10-PCS; 2017-09-17)
PROC: B2111ZZ Fluoroscopy of Multiple Coronary Arteries using Low Osmolar Contrast (ICD-10-PCS; 2017-09-17)
DX: I63.512 Cerebral infarction due to unspecified occlusion or stenosis of left middle cerebral artery (principal); G93.5 Compression of brain; I77.71 Dissection of carotid artery; Z66 Do not resuscitate; G93.6 Cerebral edema; G93.1 Anoxic brain damage, not elsewhere classified; J69.0 Pneumonitis due to inhalation of food and vomit; E87.8 Other disorders of electrolyte and fluid balance, not elsewhere classified; D62 Acute posthemorrhagic anemia; J96.90 Respiratory failure, unspecified, unspecified whether with hypoxia or hypercapnia; G81.91 Hemiplegia, unspecified affecting right dominant side; E87.0 Hyperosmolality and hypernatremia; I63.522 Cerebral infarction due to unspecified occlusion or stenosis of left anterior cerebral artery; F17.210 Nicotine dependence, cigarettes, uncomplicated; F32.9 Major depressive disorder, single episode, unspecified; R47.01 Aphasia; Z82.3 Family history of stroke; F15.10 Other stimulant abuse, uncomplicated; I10 Essential (primary) hypertension; R40.2432 Glasgow coma scale score 3-8, at arrival to emergency department; Z78.1 Physical restraint status
CPT/HCPCS: 36415; 36416; 36430; 51702; 70450; 70496; 70498; 71045; 71275; 72125; 74177; 76942; 78610; 80048; 80053; 80061; 80202; 80306; 81001; 81003; 81015; 82150; 82550; 82553; 82805; 83605; 83690; 83735; 83930; 84100; 84443; 84484; 84703; 85007; 85014; 85018; 85025; 85027; 85049; 85379; 85610; 85730; 86850; 86900; 86901; 87040; 87077; 87086; 87149; 87186; 87205; 93306; 93454; 94002; 94003; 96365; 96366; 96368; 96375; A9521; C1769; C9113; G8978-GP-CN; G8979-GP-CK; J0360; J1644; J2001; J2250; J2270; J2354; J2370; J2543; J2704; J2930; J3010; J3370; J3480; J7050; P9016

== ENCOUNTER 2017-09-17 14:45 | Inpatient (IN) | payer OTHER ==
[2017-09-17 18:40] VITALS: BMI 18.3
[2017-09-17] MEDS ORDERED: methylPREDNISolone Sod Succ 2 GM in Sodium Chloride 0.9% 100 ML IVPB SCH (18:45)
[2017-09-17] MEDS ORDERED: Phenylephrine 10 MG/NS 250 ML 250 ML IVPB SCH (18:45)
[2017-09-17] MEDS ORDERED: Norepinephrine 8 MG/0.9% NS 250 ML IVPB SCH (18:45)
[2017-09-17] MEDS: Piperacillin/Tazobactam 3.375 GM in Sodium Chloride 0.9% 100 ML IVPB SCH (18:49)
[2017-09-17 18:57] LABS: Hemoglobin 8.9 g/dL (12.0-16.0); Mean Corpuscular HGB CONC 30.5 g/dL (32.0-36.0); Mean Corpuscular Hemoglobin 26.7 pg (27.0-31.0); Mean Corpuscular Volume 87.6 fl (81.0-99.0); Mean Platelet Volume 11.5 fL (7.4-10.4); Platelet Count 166 thou/uL (130-400); RBC Distribution Width 17.8 % (11.5-14.5); Red Blood Cell (RBC) Count 3.32 mill/uL (4.20-5.40)
[2017-09-17 18:59] LABS: INR-International Normal Ratio 1.3; PTT 36.5 SEC (22.9-36.1); Prothrombin Time 16.5 SEC (12.0-14.7)
[2017-09-17 19:13] LABS: #Eosinphils 0.5 thou/uL (0.0-0.7); #Lymphocytes 3.1 thou/uL (1.20-3.40); #Neutrophils 14.5 thou/uL (1.40-6.50); %Eosinophils 2.5 % (0.0-10.0); %Lymphocytes 16.6 % (21.0-51.0); %Monocytes 5.7 % (0.0-10.0); %Neutrophils 75.2 % (42.0-75.0); Hemoglobin A1c 5.8 % (4.0-6.0)
[2017-09-17 19:14] LABS: Actual Bicarbonate (HCO3a) 23.5 mEq/L (22-26); O2 Tension (PaO2) 93.3 mmHg (80.0-100.0); pH, Arterial 7.45 (7.35-7.45)
[2017-09-17 19:14] LABS: Anisocytosis SLIGHT = 6-15 cells (100X) (0-5/hpf); Band 3 % (5-11); Eosinophils 6 % (0-10); Hypochromia SLIGHT = 6-15 cells (100X) (0-5/hpf); Lymphocytes 16 % (21-51); MDiff Complete? YES; Metamyelocyte 1 % (0-0); Monocytes 2 % (0-10); Neutrophil 72 % (42-75); Nucleated RBC 1 % (0); Ovalocytes SLIGHT = 2-5 cells (100X) (0-1/hpf); PLT Morphology Comment Appears Adequate; Polychromasia SLIGHT = 2-3 cells (100X) (0-2/hpf); Schistocytes SLIGHT = 2-5 cells (100X) (0-1/hpf); Target Cells SLIGHT = 2-5 cells (100X) (0-1/hpf)
[2017-09-17 19:15] LABS: Base Excess (BEa) -0.3 mEq/L (0 (+/-) 2.5); Carboxyhemoglobin (COHb) 1.5 gm% (0.0-3.0); Hematocrit-ABG 17.7 % (36.0-47.0); Potassium - ABG Lab 3.8 mmol/L (3.70-5.30)
[2017-09-17 19:16] LABS: Calcium, Ionized 1.4 mmol/L (1.12-1.30); Puncture Site LINE
[2017-09-17 19:21] LABS: ALT (SGPT) 20 U/L (8-55); AST (SGOT) 34 U/L (5-34); Albumin 2.3 g/dL (3.5-5.0); Alkaline Phosphatase 156 U/L (40-150); Anion Gap 10 mmol/L (10-20); BUN (Urea Nitrogen) 21 mg/dL (7.0-18.7); Bilirubin, Total 0.5 mg/dL (0.2-1.2); Calc. Creatinine Clearance 49 mL/min (70-130); Calcium 9.1 mg/dL (7.8-10.44); Carbon Dioxide 21 mmol/L (22-29); Chloride 141 mmol/L (98-107); Estimated GFR-MDRD 47; Glucose 98 mg/dL (70-105); Lipase 14 U/L (8-78); Magnesium 2.5 mg/dL (1.6-2.6); Phosphorus 2.3 mg/dL (2.3-4.7); Potassium 3.9 mmol/L (3.5-5.1); Protein, Total 6.3 g/dL (6.0-8.3); Sodium 168 mmol/L (136-145)
[2017-09-17] MEDS: Phytonadione 10 MG in Sodium Chloride 0.9% 50 ML IVPB SCH ×2 (19:23→22:42)
[2017-09-17] MEDS: Sodium Chloride 0.45% 1,000 ML IV SCH (20:07)
[2017-09-17] MEDS: Levothyroxine Sodium 400 MCG in Sodium Chloride 0.9% 100 ML IVPB SCH (20:09)
[2017-09-17] MEDS: Albuterol Sulfate 2.5 mg/3 ml Neb NEB SCH (21:30)
[2017-09-17] MEDS: Phenylephrine HCL 20 MG in Sodium Chloride 0.9% 250 ML 250 ML IV SCH (22:42)
[2017-09-17 23:09] LABS: Actual Bicarbonate (HCO3a) 21.5 mEq/L (22-26); Base Excess (BEa) -4.2 mEq/L (0 (+/-) 2.5); CO2 Tension 41.8 mmHg (35.0-45.0); Carboxyhemoglobin (COHb) 1.4 gm% (0.0-3.0); Hematocrit-ABG 18.9 % (36.0-47.0); Hemoglobin (Hb) 8.8 g/dL (12.0-16.0); O2 Tension (PaO2) 455.5 mmHg (80.0-100.0); pH, Arterial 7.33 (7.35-7.45)
[2017-09-17 23:10] LABS: Calcium, Ionized 1.3 mmol/L (1.12-1.30); Potassium - ABG Lab 3.9 mmol/L (3.70-5.30); Puncture Site LINE
[2017-09-17 23:44] LABS: #Eosinphils 0.2 thou/uL (0.0-0.7); #Lymphocytes 1.5 thou/uL (1.20-3.40); #Monocytes 0.4 thou/uL (0.11-0.59); #Neutrophils 17.3 thou/uL (1.40-6.50); %Eosinophils 0.9 % (0.0-10.0); %Lymphocytes 7.7 % (21.0-51.0); %Monocytes 2.1 % (0.0-10.0); %Neutrophils 89.3 % (42.0-75.0); Hemoglobin 8.9 g/dL (12.0-16.0); Mean Corpuscular HGB CONC 31.6 g/dL (32.0-36.0); Mean Corpuscular Hemoglobin 27.5 pg (27.0-31.0); Mean Corpuscular Volume 87.3 fl (81.0-99.0); Mean Platelet Volume 11.8 fL (7.4-10.4); Platelet Count 144 thou/uL (130-400); RBC Distribution Width 17.4 % (11.5-14.5); Red Blood Cell (RBC) Count 3.21 mill/uL (4.20-5.40); White Blood Cell (WBC) Count 19.4 thou/uL (4.8-10.8)
[2017-09-17 23:52] LABS: INR-International Normal Ratio 1.4; PTT 37.3 SEC (22.9-36.1); Prothrombin Time 17.6 SEC (12.0-14.7)
[2017-09-18 00:14] LABS: ALT (SGPT) 20 U/L (8-55); AST (SGOT) 35 U/L (5-34); Albumin 2.4 g/dL (3.5-5.0); Alkaline Phosphatase 166 U/L (40-150); Anion Gap 13 mmol/L (10-20); BUN (Urea Nitrogen) 25 mg/dL (7.0-18.7); Calc. Creatinine Clearance 44 mL/min (70-130); Calcium 8.8 mg/dL (7.8-10.44); Carbon Dioxide 24 mmol/L (22-29); Chloride 135 mmol/L (98-107); Estimated GFR-MDRD 41; Globulin 4.2 g/dL (2.4-3.5); Glucose 189 mg/dL (70-105); Lipase 11 U/L (8-78); Magnesium 2.3 mg/dL (1.6-2.6); Phosphorus 5.2 mg/dL (2.3-4.7); Potassium 4.1 mmol/L (3.5-5.1); Protein, Total 6.6 g/dL (6.0-8.3); Sodium 168 mmol/L (136-145)
[2017-09-18] MEDS: Piperacillin/Tazobactam 3.375 GM in Sodium Chloride 0.9% 100 ML IVPB SCH ×4 (00:20→18:16)
[2017-09-18] MEDS: Albuterol Sulfate 2.5 mg/3 ml Neb NEB SCH ×6 (02:18→22:17)
[2017-09-18] MEDS: Sodium Chloride 0.45% 1,000 ML IV SCH ×2 (02:34→07:05)
[2017-09-18] MEDS: Levothyroxine Sodium 400 MCG in Sodium Chloride 0.9% 100 ML IVPB SCH ×4 (02:44→22:39)
[2017-09-18 03:32] LABS: Actual Bicarbonate (HCO3a) 19.2 mEq/L (22-26); CO2 Tension 41.5 mmHg (35.0-45.0); Hematocrit-ABG 27.4 % (36.0-47.0); O2 Tension (PaO2) 145.2 mmHg (80.0-100.0); pH, Arterial 7.28 (7.35-7.45)
[2017-09-18 03:33] LABS: Calcium, Ionized 1.3 mmol/L (1.12-1.30); Carboxyhemoglobin (COHb) 1.4 gm% (0.0-3.0); Hemoglobin (Hb) 11.7 g/dL (12.0-16.0); Potassium - ABG Lab 4.1 mmol/L (3.70-5.30)
[2017-09-18 03:34] LABS: ALV-art Gradient 86.125 (0-20); Puncture Site LINE
[2017-09-18] MEDS: Phenylephrine HCL 20 MG in Sodium Chloride 0.9% 250 ML 250 ML IV SCH ×3 (04:04→12:03)
[2017-09-18 06:05] LABS: #Lymphocytes 0.7 thou/uL (1.20-3.40); #Monocytes 0.1 thou/uL (0.11-0.59); #Neutrophils 18.9 thou/uL (1.40-6.50); %Eosinophils 0.1 % (0.0-10.0); %Lymphocytes 3.4 % (21.0-51.0); %Monocytes 0.6 % (0.0-10.0); %Neutrophils 95.9 % (42.0-75.0); Hemoglobin 8.1 g/dL (12.0-16.0); Mean Corpuscular HGB CONC 30.3 g/dL (32.0-36.0); Mean Corpuscular Hemoglobin 26.7 pg (27.0-31.0); Mean Platelet Volume 11.7 fL (7.4-10.4); Platelet Count 152 thou/uL (130-400); RBC Distribution Width 17.3 % (11.5-14.5); Red Blood Cell (RBC) Count 3.02 mill/uL (4.20-5.40); White Blood Cell (WBC) Count 19.7 thou/uL (4.8-10.8)
[2017-09-18 06:12] LABS: INR-International Normal Ratio 1.4; PTT 38.3 SEC (22.9-36.1); Prothrombin Time 17.1 SEC (12.0-14.7)
[2017-09-18 06:26] LABS: ALT (SGPT) 18 U/L (8-55); AST (SGOT) 26 U/L (5-34); Albumin 2.3 g/dL (3.5-5.0); Alkaline Phosphatase 155 U/L (40-150); Anion Gap 13 mmol/L (10-20); BUN (Urea Nitrogen) 27 mg/dL (7.0-18.7); Bilirubin, Total 0.4 mg/dL (0.2-1.2); Calc. Creatinine Clearance 41 mL/min (70-130); Calcium 8.4 mg/dL (7.8-10.44); Carbon Dioxide 22 mmol/L (22-29); Chloride 130 mmol/L (98-107); Estimated GFR-MDRD 39; Globulin 4.3 g/dL (2.4-3.5); Glucose 307 mg/dL (70-105); Lipase 10 U/L (8-78); Magnesium 2.2 mg/dL (1.6-2.6); Phosphorus 5.2 mg/dL (2.3-4.7); Potassium 4.1 mmol/L (3.5-5.1); Protein, Total 6.6 g/dL (6.0-8.3); Sodium 161 mmol/L (136-145)
[2017-09-18] MEDS ORDERED: Dextrose 5% in Water 1,000 ML IV PRN (06:38)
[2017-09-18] MEDS ORDERED: HumaLOG 300 UNITS/3 ML VIAL SC PRN (06:38)
[2017-09-18] MEDS ORDERED: Dextrose 50% Abboject 50 ML SYRINGE IVP PRN (06:38)
--- NOTE | 2017-09-18 06:51 | RAD ---
FRONTAL RADIOGRAPH CHEST: 09/17/2017 11:28 p.m. HISTORY: Organ donor. COMPARISON: 09/17/2017 at 4:15 p.m. FINDINGS: There is an endotracheal tube terminating at the level of the clavicles. A nasogastric tube extends into the left abdomen. There is increasing hazy density in the right perihilar region/medial right lung base, which may sign agnes right basilar volume loss or infectious pneumonitis/aspiration. Streaky opacity is noted in the medial left lung base, nonspecific and unchanged. IMPRESSION: 1. Lines and tubes as above. 2. Persistent opacity in the left base. 3. Worsening aeration of right lung base. POS: [facility]
[2017-09-18] MEDS ORDERED: Insulin Regular 300 UNITS/3 ML VIAL IVP SCH (07:00)
[2017-09-18] MEDS ORDERED: Fluconazole In NaCl,Iso-Osm 400 MG in Premix Bag 1 BAG IVPB SCH (08:30)
[2017-09-18] MEDS ORDERED: ADMIXTURE FEE IVPB SCH (09:30)
[2017-09-18] MEDS ORDERED: NICARDIPINE HCL IVPB SCH (09:30)
[2017-09-18] MEDS ORDERED: SODIUM CHLORIDE IVPB SCH (09:30)
[2017-09-18] MEDS: Insulin Regular (Human) 100 UNITS, Admixture Fee 1 EACH in Sodium Chloride 0.9% 100 ML IVPB SCH ×2 (09:45→16:05)
[2017-09-18 10:07] LABS: Troponin I 3.718 ng/mL (< 0.028)
[2017-09-18 10:35] LABS: #Monocytes 0.2 thou/uL (0.11-0.59); #Neutrophils 17.2 thou/uL (1.40-6.50); %Eosinophils 0.2 % (0.0-10.0); %Lymphocytes 5.4 % (21.0-51.0); %Monocytes 1.1 % (0.0-10.0); %Neutrophils 93.3 % (42.0-75.0); Hemoglobin 7.4 g/dL (12.0-16.0); Mean Corpuscular HGB CONC 30.6 g/dL (32.0-36.0); Mean Corpuscular Hemoglobin 26.8 pg (27.0-31.0); Mean Corpuscular Volume 87.5 fl (81.0-99.0); Mean Platelet Volume 11.3 fL (7.4-10.4); Platelet Count 137 thou/uL (130-400); RBC Distribution Width 17.7 % (11.5-14.5); Red Blood Cell (RBC) Count 2.78 mill/uL (4.20-5.40); White Blood Cell (WBC) Count 18.5 thou/uL (4.8-10.8)
--- NOTE | 2017-09-18 10:39 | CT ---
CHEST CT WITHOUT CONTRAST: Date: 09/18/17 HISTORY: Organ donor. COMPARISON: CT angiogram of chest dated 09/12/17. TECHNIQUE: Noncontrast chest CT is performed in the axial plane. Coronal reformatted images are submitted for in terpretation. Lungs will be transplanted later this afternoon. FINDINGS: Limited evaluation of the mediastinum. No mass, lymphadenopathy, or significant pericardial fluid. En dotracheal and nasogastric tube are identified. Upper solid organs are unremarkable. Small bilateral effusions with adjacent consolidation due to atelectasis or pneumonia. Trachea and ce ntral bronchi are patent. No pneumothorax. No lytic or blastic lesions within the osseous structures. The mediolateral diameter of the heart is 11.0 cm. Left lung dimensions: Mediolateral diameter is 6.6 cm, anterior posterior is 11.8 cm, and craniocaud al is 16.1 cm. Right lung dimensions: Mediolateral diameter is 8.3 cm, anterior posterior is 11.4 cm, and craniocaud al is 13.9 cm. IMPRESSION: Dimensions as above. POS: [facility]
[2017-09-18 10:42] LABS: INR-International Normal Ratio 1.4; Prothrombin Time 17.1 SEC (12.0-14.7)
[2017-09-18 10:43] LABS: PTT 49.5 SEC (22.9-36.1)
[2017-09-18 11:02] LABS: Troponin I 2.756 ng/mL (< 0.028)
[2017-09-18 11:08] LABS: ALT (SGPT) 15 U/L (8-55); AST (SGOT) 18 U/L (5-34); Albumin 2.2 g/dL (3.5-5.0); Alkaline Phosphatase 141 U/L (40-150); Anion Gap 10 mmol/L (10-20); BUN (Urea Nitrogen) 27 mg/dL (7.0-18.7); Bilirubin, Total 0.3 mg/dL (0.2-1.2); Calc. Creatinine Clearance 45 mL/min (70-130); Calcium 8.2 mg/dL (7.8-10.44); Carbon Dioxide 22 mmol/L (22-29); Chloride 132 mmol/L (98-107); Estimated GFR-MDRD 42; Globulin 4.1 g/dL (2.4-3.5); Glucose 220 mg/dL (70-105); Lipase 12 U/L (8-78); Magnesium 2.3 mg/dL (1.6-2.6); Protein, Total 6.3 g/dL (6.0-8.3); Sodium 161 mmol/L (136-145)
[2017-09-18] MEDS ORDERED: Dextrose 5% in Water 1,000 ML IV SCH (11:30)
[2017-09-18] MEDS ORDERED: CEFAZOLIN 1 GM, Syringe 2.5 ML in Sterile Water 7.5 ML SLOW IVP SCH (12:00)
--- NOTE | 2017-09-18 12:38 | RAD ---
PORTABLE CHEST 1 VIEW: DATE: 09/18/17. TIME: 11:58 a.m. HISTORY: Organ donor. FINDINGS/IMPRESSION: Comparison is made with the exam of previous day. Endotracheal and nasogastric tubes remain in place . The heart size is stable. Please see recent CT scan for measurements and detailed intrathoracic f indings. POS: [facility]
[2017-09-18 12:45] LABS: Bilirubin Negative (Negative); Blood, Urine Moderate (Negative); Clarity CLOUDY (Clear); Glucose, Urine (Dipstick) 100 mg/dL (Negative); Leukocyte Negative (Negative); Nitrite Negative (Negative); Protein, Urine (Dipstick) 30 mg/dL (Neg-Trace); Specific Gravity, Urine 1.022 (1.002-1.036); Urobilinogen 0.2 mg/dL (0.2-1.0); pH, Urine 5.5 (5.0-9.0)
[2017-09-18 12:53] LABS: Bacteria/HPF None Seen HPF (None Seen); Squamous Epithelial 0-3 HPF (0-3)
[2017-09-18 13:07] LABS: Hyaline Casts/LPF 0-3 HYALINE CAST LPF (0-3 Hyaline); Renal Epithelial None Seen HPF (0-3); Transitional Epithelial NONE SEEN HPF (0-3)
--- NOTE | 2017-09-18 13:21 | EKG ---
Test Reason : Blood Pressure : / mmHG Vent. Rate : 062 BPM Atrial Rate : 062 BPM P-R Int : 120 ms QRS Dur : 088 ms QT Int : 534 ms P-R-T Axes : 054 020 221 degrees QTc Int : 542 ms Normal sinus rhythm Prolonged QT Abnormal ECG Confirmed by HECTOR KAUR ([id number]) on 09/18/2017 1:21:05 PM Referred By: STWA Confirmed By:HECTOR KAUR
--- NOTE | 2017-09-18 13:40 | EKG ---
Test Reason : DONOR Blood Pressure : / mmHG Vent. Rate : 073 BPM Atrial Rate : 073 BPM P-R Int : 130 ms QRS Dur : 092 ms QT Int : 610 ms P-R-T Axes : 067 033 201 degrees QTc Int : 672 ms Normal sinus rhythm Moderate voltage criteria for LVH, may be normal variant QT has lengthened Abnormal ECG Confirmed by HECTOR KAUR ([id number]) on 09/18/2017 1:39:50 PM Referred By: CALOS Confirmed By:HECTOR KAUR
[2017-09-18 15:15] LABS: Critical Call Chem Troponin I RESULT DECREASING; Troponin I 2.395 ng/mL (< 0.028)
[2017-09-18 15:36] LABS: Actual Bicarbonate (HCO3a) 20.4 mEq/L (22-26); Base Excess (BEa) -5.5 mEq/L (0 (+/-) 2.5); CO2 Tension 41.7 mmHg (35.0-45.0); Carboxyhemoglobin (COHb) 99.8 gm% (0.0-3.0); Hemoglobin (Hb) 7.4 g/dL (12.0-16.0); O2 Tension (PaO2) 490.3 mmHg (80.0-100.0); pH, Arterial 7.31 (7.35-7.45)
[2017-09-18 15:37] LABS: Calcium, Ionized 1.3 mmol/L (1.12-1.30); Potassium - ABG Lab 2.8 mmol/L (3.70-5.30); Puncture Site ALINE
[2017-09-18 15:38] LABS: ALV-art Gradient 170.575 (0-20)
[2017-09-18 16:43] LABS: Base Excess (BEa) -5.8 mEq/L (0 (+/-) 2.5); CO2 Tension 40.6 mmHg (35.0-45.0); Hemoglobin (Hb) 6.6 g/dL (12.0-16.0); O2 Tension (PaO2) 485.4 mmHg (80.0-100.0); pH, Arterial 7.31 (7.35-7.45)
[2017-09-18 16:44] LABS: Calcium, Ionized 1.3 mmol/L (1.12-1.30); Carboxyhemoglobin (COHb) 1.2 gm% (0.0-3.0); Potassium - ABG Lab 3.7 mmol/L (3.70-5.30); Puncture Site ALINE
[2017-09-18 18:09] LABS: #Monocytes 0.3 thou/uL (0.11-0.59); #Neutrophils 16.9 thou/uL (1.40-6.50); %Basophils 0.1 % (0.0-1.0); %Eosinophils 0.1 % (0.0-10.0); %Lymphocytes 5.3 % (21.0-51.0); %Monocytes 1.4 % (0.0-10.0); %Neutrophils 93.1 % (42.0-75.0); Hemoglobin 6.4 g/dL (12.0-16.0); Mean Corpuscular HGB CONC 29.8 g/dL (32.0-36.0); Mean Corpuscular Hemoglobin 26.4 pg (27.0-31.0); Mean Corpuscular Volume 88.8 fl (81.0-99.0); Mean Platelet Volume 11.2 fL (7.4-10.4); Platelet Count 123 thou/uL (130-400); RBC Distribution Width 17.5 % (11.5-14.5); Red Blood Cell (RBC) Count 2.41 mill/uL (4.20-5.40); White Blood Cell (WBC) Count 18.1 thou/uL (4.8-10.8)
[2017-09-18 18:11] LABS: INR-International Normal Ratio 1.4; PTT 48.6 SEC (22.9-36.1)
[2017-09-18 18:24] LABS: ALT (SGPT) 13 U/L (8-55); AST (SGOT) 15 U/L (5-34); Alkaline Phosphatase 124 U/L (40-150); Anion Gap 6 mmol/L (10-20); Anisocytosis SLIGHT = 6-15 cells (100X) (0-5/hpf); BUN (Urea Nitrogen) 25 mg/dL (7.0-18.7); Bilirubin, Total 0.2 mg/dL (0.2-1.2); Calc. Creatinine Clearance 57 mL/min (70-130); Calcium 7.9 mg/dL (7.8-10.44); Carbon Dioxide 24 mmol/L (22-29); Chloride 124 mmol/L (98-107); Estimated GFR-MDRD 56; Globulin 3.8 g/dL (2.4-3.5); Glucose 152 mg/dL (70-105); Hypochromia SLIGHT = 6-15 cells (100X) (0-5/hpf); Lipase 11 U/L (8-78); MDiff Complete? YES; Magnesium 1.9 mg/dL (1.6-2.6); PLT Morphology Comment Appears Decreased; Phosphorus 2.6 mg/dL (2.3-4.7); Polychromasia SLIGHT = 2-3 cells (100X) (0-2/hpf); Potassium 3.6 mmol/L (3.5-5.1); Protein, Total 5.8 g/dL (6.0-8.3); Schistocytes SLIGHT = 2-5 cells (100X) (0-1/hpf); Sodium 150 mmol/L (136-145)
[2017-09-18] MEDS ORDERED: Bumetanide 1 MG/4 ML VIAL IVP SCH (19:00)
[2017-09-18] MEDS ORDERED: Albumin 25% 25 GM/100 ML BOT IVPB SCH (19:45)
--- NOTE | 2017-09-18 20:13 | RAD ---
PORTABLE CHEST: 09/18/17 HISTORY: Shortness of breath. Transplant patient. Assess fluid status. COMPARISON: 09/18/17, 11:58 a.m. ET tube and NG tube remain in place. Lung rowe remain well aerated. Some streaky atelectasis and/or infiltrate in the left lung base is seen. Mild vascular engorgement which is not significantly mac ed from this morning's film. POS: [facility]
[2017-09-18 22:29] LABS: CO2 Tension 41.2 mmHg (35.0-45.0); pH, Arterial 7.31 (7.35-7.45)
[2017-09-18 22:30] LABS: Actual Bicarbonate (HCO3a) 20.2 mEq/L (22-26); Base Excess (BEa) -5.6 mEq/L (0 (+/-) 2.5); Calcium, Ionized 1.2 mmol/L (1.12-1.30); Carboxyhemoglobin (COHb) 1.4 gm% (0.0-3.0); Hematocrit-ABG 17.6 % (36.0-47.0); Hemoglobin (Hb) 5.2 g/dL (12.0-16.0); Puncture Site ALINE
[2017-09-19 00:31] LABS: ALT (SGPT) 12 U/L (8-55); AST (SGOT) 13 U/L (5-34); Albumin 3.3 g/dL (3.5-5.0); Alkaline Phosphatase 122 U/L (40-150); Anion Gap 13 mmol/L (10-20); BUN (Urea Nitrogen) 22 mg/dL (7.0-18.7); Bilirubin, Total 0.3 mg/dL (0.2-1.2); Calc. Creatinine Clearance 58 mL/min (70-130); Calcium 8.5 mg/dL (7.8-10.44); Carbon Dioxide 20 mmol/L (22-29); Chloride 117 mmol/L (98-107); Estimated GFR-MDRD 57; Globulin 3.3 g/dL (2.4-3.5); Glucose 111 mg/dL (70-105); Magnesium 1.9 mg/dL (1.6-2.6); Phosphorus 3.2 mg/dL (2.3-4.7); Potassium 3.2 mmol/L (3.5-5.1); Protein, Total 6.6 g/dL (6.0-8.3); Sodium 147 mmol/L (136-145)
[2017-09-19] MEDS: Piperacillin/Tazobactam 3.375 GM in Sodium Chloride 0.9% 100 ML IVPB SCH ×2 (00:31→06:02)
[2017-09-19 00:33] LABS: Critical Call Chem Troponin I RESULT DECREASING; Troponin I 1.672 ng/mL (< 0.028)
[2017-09-19 00:41] LABS: INR-International Normal Ratio 1.3
[2017-09-19 00:42] LABS: PTT 46.7 SEC (22.9-36.1)
[2017-09-19 00:46] LABS: #Lymphocytes 0.9 thou/uL (1.20-3.40); #Monocytes 0.7 thou/uL (0.11-0.59); #Neutrophils 16.3 thou/uL (1.40-6.50); %Basophils 0.1 % (0.0-1.0); %Eosinophils 0.1 % (0.0-10.0); %Lymphocytes 5.2 % (21.0-51.0); %Monocytes 4.1 % (0.0-10.0); %Neutrophils 90.6 % (42.0-75.0); Hemoglobin 5.8 g/dL (12.0-16.0); Mean Corpuscular HGB CONC 31.4 g/dL (32.0-36.0); Mean Corpuscular Hemoglobin 27.6 pg (27.0-31.0); Mean Corpuscular Volume 87.7 fl (81.0-99.0); Mean Platelet Volume 11.2 fL (7.4-10.4); Platelet Count 115 thou/uL (130-400); RBC Distribution Width 17.5 % (11.5-14.5); Red Blood Cell (RBC) Count 2.09 mill/uL (4.20-5.40)
[2017-09-19 01:09] LABS: Bilirubin Negative (Negative); Blood, Urine Small (Negative); Clarity CLEAR (Clear); Glucose, Urine (Dipstick) Negative (Negative); Leukocyte Negative (Negative); Nitrite Negative (Negative); Protein, Urine (Dipstick) 30 mg/dL (Neg-Trace); Specific Gravity, Urine 1.019 (1.002-1.036); Urobilinogen 0.2 mg/dL (0.2-1.0); pH, Urine 5.5 (5.0-9.0)
[2017-09-19 01:11] LABS: Bacteria/HPF None Seen HPF (None Seen); Hyaline Casts/LPF 0-3 HYALINE CAST LPF (0-3 Hyaline); Pathc Cast-AUWi Flag 0.54 (0-2.49); Squamous Epithelial 0-3 HPF (0-3)
[2017-09-19] MEDS: Albuterol Sulfate 2.5 mg/3 ml Neb NEB SCH ×3 (02:18→10:48)
[2017-09-19] MEDS ORDERED: Bumetanide 1 MG/4 ML VIAL IVP SCH (03:15)
[2017-09-19] MEDS: Levothyroxine Sodium 400 MCG in Sodium Chloride 0.9% 100 ML IVPB SCH (04:51)
[2017-09-19 05:40] LABS: Actual Bicarbonate (HCO3a) 19.8 mEq/L (22-26); CO2 Tension 37.5 mmHg (35.0-45.0); O2 Tension (PaO2) 152.9 mmHg (80.0-100.0); pH, Arterial 7.34 (7.35-7.45)
[2017-09-19 05:41] LABS: ALV-art Gradient 85.425 (0-20); Base Excess (BEa) -5.4 mEq/L (0 (+/-) 2.5); Calcium, Ionized 1.2 mmol/L (1.12-1.30); Carboxyhemoglobin (COHb) 1.2 gm% (0.0-3.0); Hematocrit-ABG 22.6 % (36.0-47.0); Hemoglobin (Hb) 7.7 g/dL (12.0-16.0); Potassium - ABG Lab 4.4 mmol/L (3.70-5.30); Puncture Site ALINE
[2017-09-19 07:52] LABS: ALT (SGPT) 11 U/L (8-55); AST (SGOT) 15 U/L (5-34); Albumin 3.2 g/dL (3.5-5.0); Alkaline Phosphatase 137 U/L (40-150); Anion Gap 12 mmol/L (10-20); BUN (Urea Nitrogen) 21 mg/dL (7.0-18.7); Bilirubin, Total 0.4 mg/dL (0.2-1.2); Calc. Creatinine Clearance 54 mL/min (70-130); Calcium 8.8 mg/dL (7.8-10.44); Carbon Dioxide 21 mmol/L (22-29); Chloride 118 mmol/L (98-107); Estimated GFR-MDRD 52; Globulin 3.5 g/dL (2.4-3.5); Glucose 189 mg/dL (70-105); Magnesium 1.9 mg/dL (1.6-2.6); Phosphorus 3.1 mg/dL (2.3-4.7); Potassium 3.9 mmol/L (3.5-5.1); Protein, Total 6.7 g/dL (6.0-8.3); Sodium 147 mmol/L (136-145)
[2017-09-19 08:00] LABS: INR-International Normal Ratio 1.2; PTT 40.9 SEC (22.9-36.1); Prothrombin Time 15.7 SEC (12.0-14.7)
[2017-09-19] MEDS ORDERED: Fluconazole In NaCl,Iso-Osm 200 MG in Premix Bag 1 BAG IVPB SCH (08:00)
[2017-09-19 08:04] LABS: #Eosinphils 0.1 thou/uL (0.0-0.7); #Lymphocytes 0.9 thou/uL (1.20-3.40); #Monocytes 0.5 thou/uL (0.11-0.59); #Neutrophils 16.1 thou/uL (1.40-6.50); %Eosinophils 0.3 % (0.0-10.0); %Lymphocytes 4.9 % (21.0-51.0); %Monocytes 2.7 % (0.0-10.0); %Neutrophils 92.1 % (42.0-75.0); Mean Corpuscular HGB CONC 31.7 g/dL (32.0-36.0); Mean Corpuscular Hemoglobin 27.3 pg (27.0-31.0); Mean Corpuscular Volume 86.2 fl (81.0-99.0); Mean Platelet Volume 11.4 fL (7.4-10.4); Platelet Count 114 thou/uL (130-400); RBC Distribution Width 15.9 % (11.5-14.5); Red Blood Cell (RBC) Count 2.93 mill/uL (4.20-5.40); White Blood Cell (WBC) Count 17.5 thou/uL (4.8-10.8)
[2017-09-19 09:29] LABS: CO2 Tension 36.1 mmHg (35.0-45.0); pH, Arterial 7.37 (7.35-7.45)
[2017-09-19 09:34] LABS: Actual Bicarbonate (HCO3a) 20.4 mEq/L (22-26); Base Excess (BEa) -4.5 mEq/L (0 (+/-) 2.5); O2 Tension (PaO2) 431.7 mmHg (80.0-100.0)
[2017-09-19 09:36] LABS: Hematocrit-ABG 22.5 % (36.0-47.0); Hemoglobin (Hb) 7.6 g/dL (12.0-16.0)
[2017-09-19 09:37] LABS: Carboxyhemoglobin (COHb) 1.1 gm% (0.0-3.0)
[2017-09-19 09:38] LABS: ALV-art Gradient 236.175 (0-20); Calcium, Ionized 1.2 mmol/L (1.12-1.30); Potassium - ABG Lab 3.9 mmol/L (3.70-5.30); Puncture Site ALINE
[2017-09-19 09:46] LABS: Bilirubin Negative (Negative); Blood, Urine Small (Negative); Clarity CLEAR (Clear); Glucose, Urine (Dipstick) Negative (Negative); Leukocyte Negative (Negative); Nitrite Negative (Negative); Protein, Urine (Dipstick) 100 mg/dL (Neg-Trace); Specific Gravity, Urine 1.021 (1.002-1.036); Urobilinogen 0.2 mg/dL (0.2-1.0)
[2017-09-19 09:47] LABS: Bacteria/HPF None Seen HPF (None Seen); Hyaline Casts/LPF 0-3 HYALINE CAST LPF (0-3 Hyaline); Pathc Cast-AUWi Flag 0.27 (0-2.49); RBC/HPF 0-3 HPF (0-3); Squamous Epithelial 0-3 HPF (0-3)
[2017-09-19 10:52] VITALS: BP 124/77
[2017-09-19 11:04] VITALS: TEMP 97.6
--- NOTE | 2017-09-19 11:20 | RAD ---
PORTABLE CHEST 1 VIEW: Date: 09/19/17 Time: 0531 hours HISTORY: Respiratory failure. FINDINGS/IMPRESSION: Comparison made with exam from previous day. Endotracheal and nasogastric tube positions are unchanged. Mild pulmonary vascular congestion is note d. No lobar consolidation, pneumothoraces, or large effusions are seen. Small effusions may be presen t. POS: [facility]
[2017-09-19] MEDS ORDERED: Mannitol 12.5 GM/50 ML ONE ×2 (11:56→11:59)
[2017-09-19] MEDS ORDERED: Furosemide 20 MG/2 ML VIAL ONE ×2 (11:57→11:58)
== END 2017-09-19 14:35 | disposition expired | DRG 951 ==
LOC: CCU 14:45
PROVIDERS: ADMIT Internal Medicine Critical Care Medicine; ATTEND Internal Medicine Critical Care Medicine
DX: Z00.5 Encounter for examination of potential donor of organ and tissue (principal); I63.512 Cerebral infarction due to unspecified occlusion or stenosis of left middle cerebral artery; J69.0 Pneumonitis due to inhalation of food and vomit; I63.522 Cerebral infarction due to unspecified occlusion or stenosis of left anterior cerebral artery; D62 Acute posthemorrhagic anemia; F15.10 Other stimulant abuse, uncomplicated; F17.210 Nicotine dependence, cigarettes, uncomplicated
CPT/HCPCS: 36415; 36416; 36430; 71045; 71250; 80053; 81001; 82150; 82805; 83036; 83690; 83735; 84100; 84484; 85025; 86850; 86900; 86901; 87633; 87804; 93005; 93010; 93306; 94003; 94640; A4216; J0690; J1450; J1815; J1940; J2150; J2370; J2543; J2597; J2930; J3430; J3480; J3490; J7050; J7611; P9016; P9047; P9059